=== PATIENT | female | born 1930 | race Caucasian/White ===

== ENCOUNTER 2019-08-03 10:23 | Inpatient (IN) | payer MEDICARE, BC ==
[~2019-08-03] VITALS: Ht 162.6 cm; Wt 38.1 kg
[2019-08-03] MEDS ORDERED: POTA10CA43 PO (10:46)
[2019-08-03] MEDS ORDERED: AMLO10TA7 PO (10:46)
[2019-08-03] MEDS ORDERED: DICL2SOL TP (10:46)
[2019-08-03] MEDS ORDERED: CRANBERRY PO (10:46)
[2019-08-03] MEDS ORDERED: MEMA10TA PO (10:46)
[2019-08-03] MEDS ORDERED: DONE5TAB34 PO (10:46)
[2019-08-03] MEDS ORDERED: [UNRECOGNIZED DRUG - OTHER] PO (10:46)
[2019-08-03] MEDS ORDERED: FEXO180T94 PO (10:46)
[2019-08-03] MEDS ORDERED: AMOX500C2 PO (10:46)
[2019-08-03] MEDS ORDERED: TRAM50TA2 PO (10:46)
[2019-08-03] MEDS ORDERED: SOLI10TA2 PO (10:46)
[2019-08-03] MEDS ORDERED: CLOP75TA15 PO (10:46)
[2019-08-03] MEDS ORDERED: ASPI81TA31 PO (10:46)
[2019-08-03] MEDS ORDERED: EPIN0.3P3 IJ (10:46)
[2019-08-03] MEDS ORDERED: CHOL200059 PO (10:46)
[2019-08-03] MEDS ORDERED: ATOR40TA PO (10:46)
[2019-08-03] MEDS ORDERED: FURO-151 PO (10:46)
[2019-08-03] MEDS ORDERED: ACET-2605 PO (10:46)
[2019-08-03 11:07] LABS: BASOPHILS # (AUTO) 0.1 K/uL (0.0-8.0); BASOPHILS % (AUTO) 0.8 % (0.0-2.0); EOSINOPHILS # (AUTO) 0.1 K/uL (0.0-0.7); EOSINOPHILS % (AUTO) 1.3 % (0.0-7.0); HEMATOCRIT 38.5 % (31.2-41.9); HEMOGLOBIN 12.9 g/dL (10.9-14.3); LYMPHOCYTES # (AUTO) 1.1 K/uL (20.0-40.0); LYMPHOCYTES % (AUTO) 14.7 % (20.5-51.5); MEAN CORPUSCULAR HEMOGLOBIN 30.3 uug (24.7-32.8); MEAN CORPUSCULAR HGB CONC 34 g/dL (32.3-35.6); MONOCYTES # (AUTO) 0.6 K/uL (2.0-10.0); MONOCYTES % (AUTO) 8.3 % (0.0-11.0); NEUTROPHILS # (AUTO) 5.8 K/uL (1.8-8.9); NEUTROPHILS % (AUTO) 74.9 % (38.5-71.5); PLATELET COUNT (AUTO) 229 K/uL (179-408); RED BLOOD CELL COUNT(AUTO) 4.28 MIL/uL (3.63-4.92); WHITE BLOOD COUNT (AUTO) 7.7 K/uL (3.8-11.8)
[2019-08-03 11:09] LABS: CARBON DIOXIDE 31 mmol/L (21-32); CHLORIDE 101 mmol/L (98-107); CREATININE 1.1 mg/dL (0.6-1.3); GLUCOSE 187 mg/dL (74-106); UREA NITROGEN, BLOOD 13 mg/dL (7-18)
[2019-08-03 11:14] LABS: ALANINE AMINOTRANSFERASE 15 U/L (14-59); ALKALINE PHOSPHATASE 74 U/L (50-136); ASPARTATE AMINOTRANSFERASE 13 U/L (15-37); BILIRUBIN,DIRECT 0.2 mg/dL (0.0-0.2); BILIRUBIN,TOTAL 0.9 mg/dL (0.2-1.0); TOTAL PROTEIN, SERUM 7.4 g/dL (6.4-8.2)
[2019-08-03] MEDS ORDERED: IV NORMAL SALINE 250 ML IV ONE (12:04)
[2019-08-03] MEDS ORDERED: IOHEXOL 350 100 ML INFUS..BTL ONE (12:04)
[2019-08-03] MEDS ORDERED: SWABABLE VALVE TRANSFER SET EA MC ONE (12:04)
[2019-08-03] MEDS ORDERED: POTASSIUM CHLORIDE 20 MEQ TAB.PRT.SR PO ONE (13:00)
[2019-08-03] MEDS ORDERED: POTASSIUM CHLORIDE 20 MEQ TAB.PRT.SR ONE (13:25)
--- NOTE | 2019-08-03 13:50 | NUR ---
nitza mariscal, at bedside.
[2019-08-03] MEDS ORDERED: ONDANSETRON 4 MG/2 ML VIAL IV PRN (14:15)
[2019-08-03] MEDS ORDERED: ACETAMINOPHEN 325 MG TABLET PO PRN (14:15)
[2019-08-03] MEDS ORDERED: MORPHINE SULFATE 2 MG/1 ML DISP.SYRIN IV PRN (14:15)
[2019-08-03] MEDS ORDERED: HYDROCODONE/APAP 5-325MG TABLET PO PRN (14:15)
[2019-08-03] MEDS ORDERED: TEMAZEPAM 15 MG CAPSULE PO PRN (14:15)
--- NOTE | 2019-08-03 14:20 | NUR ---
PT TRANSFERED TO FLOOR IN STABLE CONDITION
[2019-08-03 15:30] VITALS: BP 164/82
[2019-08-03] MEDS ORDERED: MEMANTINE HCL 10 MG TABLET PO SCH (17:00)
--- NOTE | 2019-08-03 17:00 | NUR ---
This is a 89 year old female patient of Doctor Matthieu with history of mechanical fall in the home secondary to syncopal episode. Patient is confused says lives alone and says she called out several times and caregivers came to help her. The patient was brought in by ambulance for further evaluation and workup. Willy Coughlin RN
[2019-08-03] MEDS: OXYBUTYNIN CHLORIDE 5 MG TABLET PO SCH (17:51)
[2019-08-03] MEDS: MEMANTINE HCL 5 MG TABLET PO SCH (17:51)
--- NOTE | 2019-08-03 19:20 | NUR ---
RECEIVED PT AWAKE, ALERT AND ORIENTEDX3. PT SHOWS NO SIGNS OF ACUTE DISTRESS. IV INTACT. SAFETY AND COMFORT PROVIDED. WILL CONTINUE TO MONITOR.
[2019-08-03 20:29] VITALS: BP 143/74
[2019-08-03] MEDS: ATORVASTATIN 40 MG TABLET PO SCH (20:52)
[2019-08-04 00:57] VITALS: BP 140/62
--- NOTE | 2019-08-04 02:19 | NUR ---
PT HAD MULTIFOCAL PVC AND SHORT RUNS OF VTACH AT 0152H. CHARGE NURSE AWARE. PT IN NO ACUTE DISTRESS. PT CURRENTLY AT SINUS RHYTHM WITH BUNDLE BRUNCH BLOCK. SAFETY AND COMFORT PROVIDED. WILL CONTINUE TO MONITOR.
[2019-08-04 04:00] VITALS: BP 132/74
--- NOTE | 2019-08-04 06:29 | NUR ---
PT SLEPT THROUGHOUT THE SHIFT. PT SHOWS NO SIGNS OF ACUTE DISTRESS. IV INTACT. PRESCRIBED MEDICATION GIVEN AND PT TOLERATED IT WELL. PT FORGETFUL. PT NEEDS REORIENTATION.SAFETY AND COMFORT PROVIDED. WILL ENDORSE TO INCOMING NURSE FOR CONTINUITY OF CARE.
[2019-08-04 06:39] LABS: BASOPHILS % (AUTO) 0.6 % (0.0-2.0); EOSINOPHILS # (AUTO) 0.2 K/uL (0.0-0.7); EOSINOPHILS % (AUTO) 3.4 % (0.0-7.0); HEMATOCRIT 36.1 % (31.2-41.9); HEMOGLOBIN 12.5 g/dL (10.9-14.3); LYMPHOCYTES # (AUTO) 1.4 K/uL (20.0-40.0); LYMPHOCYTES % (AUTO) 24.7 % (20.5-51.5); MEAN CORPUSCULAR HEMOGLOBIN 30.4 uug (24.7-32.8); MEAN CORPUSCULAR HGB CONC 35 g/dL (32.3-35.6); MEAN CORPUSCULAR VOLUME 87.6 fL (75.5-95.3); MONOCYTES # (AUTO) 0.7 K/uL (2.0-10.0); MONOCYTES % (AUTO) 12.2 % (0.0-11.0); NEUTROPHILS # (AUTO) 3.3 K/uL (1.8-8.9); NEUTROPHILS % (AUTO) 59.1 % (38.5-71.5); PLATELET COUNT (AUTO) 235 K/uL (179-408); RED BLOOD CELL COUNT(AUTO) 4.13 MIL/uL (3.63-4.92); WHITE BLOOD COUNT (AUTO) 5.5 K/uL (3.8-11.8)
[2019-08-04 06:53] LABS: CARBON DIOXIDE 32 mmol/L (21-32); CHLORIDE 104 mmol/L (98-107); CHOLESTEROL 179 mg/dL (<200); CREATININE 0.9 mg/dL (0.6-1.3); GLUCOSE 119 mg/dL (74-106); HDL CHOLESTEROL 80 mg/dL (40-60); PHOSPHOROUS 2.7 mg/dL (2.5-4.9); POTASSIUM 3.5 mmol/L (3.5-5.1); TRIGLYCERIDES 66 MG/DL (30-150); UREA NITROGEN, BLOOD 13 mg/dL (7-18)
[2019-08-04 06:55] LABS: THYROID STIMULATING HORMONE 1.749 mIU/mL (0.358-3.740)
--- NOTE | 2019-08-04 07:30 | NUR ---
Received patient awake in bed. AO x 2. Sinus rhythm with bundle branch block on tele. Patient stable with no respiratory distress. Respirations normal. Immediate needs attended. Safety and fall precautions in place. Call light within reach. Will continue to monitor patient throughout shift. Addendum: 08/05/19 at 0521 by NOÉ MORGAN RN Receiving note at 1930 not 0730.
--- NOTE | 2019-08-04 08:00 | NUR ---
RECEIVED PT AWAKE, ALERT TO HERSELF. PT SHOWS NO SIGNS OF ACUTE DISTRESS. IV INTACT. SAFETY AND COMFORT PROVIDED. WILL CONTINUE TO MONITOR.
[2019-08-04] MEDS: CHOLECALCIFEROL 1,000 UNIT TABLET PO SCH (08:37)
[2019-08-04] MEDS: MEMANTINE HCL 5 MG TABLET PO SCH ×2 (08:37→16:34)
[2019-08-04] MEDS: POTASSIUM CHLORIDE 10 MEQ TAB.PRT.SR PO SCH (08:37)
[2019-08-04] MEDS: CLOPIDOGREL 75 MG TABLET PO SCH (08:37)
[2019-08-04] MEDS: OXYBUTYNIN CHLORIDE 5 MG TABLET PO SCH ×2 (08:39→16:33)
[2019-08-04] MEDS: AMLODIPINE 10 MG TABLET PO SCH (08:39)
[2019-08-04] MEDS: FUROSEMIDE 40 MG TABLET PO SCH (08:39)
[2019-08-04] MEDS: ASPIRIN 81 MG TAB.CHEW PO SCH (08:40)
[2019-08-04] MEDS: DONEPEZIL 5 MG TABLET PO SCH (08:40)
[2019-08-04] MEDS ORDERED: SOLIFENACIN SUCCINATE 5 MG TABEC PO SCH (09:00)
[2019-08-04 11:59] VITALS: BP 121/59
[2019-08-04 16:00] VITALS: BP 137/65
--- NOTE | 2019-08-04 16:34 | NUR ---
PATIENT REFUSED TO TAKE HER MEDICATIONS, SHE STATED I DONT THEM. I EXPLAINED THE BENEFITS TO THE PATIENT BUT SHE STILL REFUSED.
--- NOTE | 2019-08-04 17:42 | NUR ---
I NEEDED TO CHANGE THE DRESSING ON THE IV SITE BUT PATIENT REFUSED, BECAME VERY IRRITATED AND TOLD ME TO LEAVE THE ROOM
--- NOTE | 2019-08-04 17:50 | NUR ---
Patient had afiv with aberrancy ( checked with Koshkaryan), BP were sbp 180" , rechecked in 10 min still 170's , called DECLAN Howard and he ordered Hydralazine 10 mg ivp q6h prn Addendum: 08/04/19 at 1808 by CASS GAN RN Patient had afiv with aberrancy ( checked with Koshkaryan), BP were sbp 180" , rechecked in 10 min still 170's , called DECLAN Howard and he ordered Hydralazine 10 mg ivp q6h prn. Patient is asymptomatic, denies chest pain , no SOB per observation, O2 97%
[2019-08-04 18:09] VITALS: BP 171/82
[2019-08-04] MEDS: hydrALAZINE HCL 20 MG/1 ML VIAL IV PRN (18:14)
--- NOTE | 2019-08-04 19:28 | NUR ---
RECEIVED PT AWAKE, ALERT TO HERSELF. PT SHOWS NO SIGNS OF ACUTE DISTRESS. IV INTACT. SAFETY AND COMFORT PROVIDED. WILL CONTINUE TO MONITOR.
[2019-08-04 20:00] VITALS: BP 129/73
[2019-08-04] MEDS: ATORVASTATIN 40 MG TABLET PO SCH ×2 (21:00→21:07)
[2019-08-05] VITALS (7 sets, daily range): BP systolic 100–149; BP diastolic 53–78
--- NOTE | 2019-08-05 05:21 | NUR ---
Patient slept throughout the night with no signs of distress. Sinus rhythm with bundle branch block on tele. Vitals within normal with slightly low bp in the 100s/40s. Needs attended. Safety and fall precautions in place. Will endorse care to oncoming shift.
[2019-08-05 06:26] LABS: BASOPHILS # (AUTO) 0.1 K/uL (0.0-8.0); BASOPHILS % (AUTO) 0.9 % (0.0-2.0); EOSINOPHILS # (AUTO) 0.2 K/uL (0.0-0.7); EOSINOPHILS % (AUTO) 3.3 % (0.0-7.0); HEMATOCRIT 34.2 % (31.2-41.9); LYMPHOCYTES # (AUTO) 1.5 K/uL (20.0-40.0); LYMPHOCYTES % (AUTO) 24.9 % (20.5-51.5); MEAN CORPUSCULAR HEMOGLOBIN 30.6 uug (24.7-32.8); MEAN CORPUSCULAR HGB CONC 35 g/dL (32.3-35.6); MEAN CORPUSCULAR VOLUME 87.5 fL (75.5-95.3); MONOCYTES # (AUTO) 0.7 K/uL (2.0-10.0); NEUTROPHILS # (AUTO) 3.6 K/uL (1.8-8.9); NEUTROPHILS % (AUTO) 59.9 % (38.5-71.5); PLATELET COUNT (AUTO) 223 K/uL (179-408); RED BLOOD CELL COUNT(AUTO) 3.91 MIL/uL (3.63-4.92); WHITE BLOOD COUNT (AUTO) 6.1 K/uL (3.8-11.8)
[2019-08-05 06:37] LABS: CARBON DIOXIDE 31 mmol/L (21-32); CHLORIDE 104 mmol/L (98-107); CREATININE 0.8 mg/dL (0.6-1.3); GLUCOSE 111 mg/dL (74-106); POTASSIUM 3.4 mmol/L (3.5-5.1); UREA NITROGEN, BLOOD 15 mg/dL (7-18)
[2019-08-05] MEDS ORDERED: POTASSIUM CHLORIDE 20 MEQ TAB.PRT.SR PO ONE (07:30)
--- NOTE | 2019-08-05 08:05 | NUR ---
RECEIVED PT AWAKE, ALERT TO HERSELF. PT SHOWS NO SIGNS OF ACUTE DISTRESS OR SOB. SAFETY AND COMFORT PROVIDED. SAFETY MEASURES IMPLEMENTED. TEL;E MONITORING SHOWS SINUS RHYTHM. PT IS MEDICATION COMPLIANT. CALL LIGHT WITHIN REACH. WILL CONTINUE TO MONITOR.
[2019-08-05] MEDS ORDERED: POTASSIUM CHLORIDE 20 MEQ POWDER PACKET PO ONE (08:30)
[2019-08-05] MEDS: MEMANTINE HCL 5 MG TABLET PO SCH ×2 (08:44→17:38)
[2019-08-05] MEDS: FUROSEMIDE 40 MG TABLET PO SCH (08:45)
[2019-08-05] MEDS: CHOLECALCIFEROL 1,000 UNIT TABLET PO SCH (08:45)
[2019-08-05] MEDS: DONEPEZIL 5 MG TABLET PO SCH (08:45)
[2019-08-05] MEDS: OXYBUTYNIN CHLORIDE 5 MG TABLET PO SCH ×2 (08:45→17:38)
[2019-08-05] MEDS: ASPIRIN 81 MG TAB.CHEW PO SCH (08:47)
[2019-08-05] MEDS: AMLODIPINE 10 MG TABLET PO SCH (08:47)
[2019-08-05] MEDS: POTASSIUM CHLORIDE 10 MEQ TAB.PRT.SR PO SCH (08:47)
[2019-08-05] MEDS: CLOPIDOGREL 75 MG TABLET PO SCH (08:47)
[2019-08-05] MEDS: METOPROLOL SUCCINATE XL 50 MG TAB.SR.24H PO SCH (12:14)
--- NOTE | 2019-08-05 12:15 | NUR ---
PT IS CURRENTLY RESTING COMFORTABLY IN BED. PT AWAKE AND PLEASANT. NO SIGNS OF ACUTE DISTRESS NOTED. NO SOB NOTED. BED LOCKED IN LOW POSITION. CALL LIGHT WITHIN REACH. TELE SHOWS SYNUS RHYTHM. PT IS MEDICATION COMPLIANT. WILL CONTINUE TO MONITOR.
[2019-08-05] MEDS: Z GUARD REMEDY PASTE 57 GM TUBE TOP SCH ×2 (16:06→21:19)
--- NOTE | 2019-08-05 18:05 | NUR ---
PT RESTING COMFORTABLY. NO SIGNS OF ACUTE DISTRESS OR SOB. PT IS MEDICATION COMPLIANT. AWAKE AND COOPERATIVE. IV SITE PATENT AND INTACT ON R F/A 20 GAUGE HEP LOCK. TELE MONITORING SHOWS SINUS RHYTHM WITH BUNDLE BRANCH BLOCK. 2 EPISODES OF AFIB REPORTED. DE. ERAZO AWARE. BED LOCKED IN LOW POSITION. CALL LIGHT WITHIN REACH. WILL GIVE SHIFT CHANGE REPORT ACCORDINGLY.
--- NOTE | 2019-08-05 19:30 | NUR ---
Received patient resting in bed watching television. AO x 2. Sinus rhythm with bundle branch block on monitor. No acute distress noted. No SOB noted. Safety precautions in place, bed alarm on. Bed locked, lowest position, semi fowlers, with 2 side rails up. Call light within reach. Will continue to monitor throughout shift.
[2019-08-05] MEDS: ATORVASTATIN 40 MG TABLET PO SCH ×2 (20:30→21:00)
[2019-08-06 00:48] VITALS: BP 133/72
[2019-08-06 04:46] VITALS: BP 170/83
--- NOTE | 2019-08-06 05:00 | NUR ---
received report by cage shift manager RN.
[2019-08-06] MEDS: hydrALAZINE HCL 20 MG/1 ML VIAL IV PRN (05:13)
[2019-08-06 06:29] LABS: BASOPHILS % (AUTO) 0.5 % (0.0-2.0); EOSINOPHILS # (AUTO) 0.3 K/uL (0.0-0.7); EOSINOPHILS % (AUTO) 3.4 % (0.0-7.0); HEMATOCRIT 39.2 % (31.2-41.9); HEMOGLOBIN 13.5 g/dL (10.9-14.3); LYMPHOCYTES # (AUTO) 2.1 K/uL (20.0-40.0); LYMPHOCYTES % (AUTO) 24.9 % (20.5-51.5); MEAN CORPUSCULAR HEMOGLOBIN 30.8 uug (24.7-32.8); MEAN CORPUSCULAR HGB CONC 35 g/dL (32.3-35.6); MEAN CORPUSCULAR VOLUME 89.2 fL (75.5-95.3); MONOCYTES # (AUTO) 0.8 K/uL (2.0-10.0); MONOCYTES % (AUTO) 9.1 % (0.0-11.0); NEUTROPHILS # (AUTO) 5.1 K/uL (1.8-8.9); NEUTROPHILS % (AUTO) 62.1 % (38.5-71.5); PLATELET COUNT (AUTO) 272 K/uL (179-408); WHITE BLOOD COUNT (AUTO) 8.3 K/uL (3.8-11.8)
--- NOTE | 2019-08-06 06:37 | NUR ---
patient given hydralazine for high BP. current BP is stable at 111/67
[2019-08-06 06:39] LABS: CARBON DIOXIDE 27 mmol/L (21-32); CHLORIDE 102 mmol/L (98-107); CREATININE 0.7 mg/dL (0.6-1.3); GLUCOSE 99 mg/dL (74-106); POTASSIUM 3.5 mmol/L (3.5-5.1); UREA NITROGEN, BLOOD 16 mg/dL (7-18)
--- NOTE | 2019-08-06 07:15 | NUR ---
Received patient in Bed, awake and verbally responsive. No signs of distress noted. No complain of pain or discomfort. Kept the call light within easy reach. Bed in lowest position. Will continue to monitor.
[2019-08-06] MEDS: DONEPEZIL 5 MG TABLET PO SCH (08:25)
[2019-08-06] MEDS: ASPIRIN 81 MG TAB.CHEW PO SCH (08:25)
[2019-08-06] MEDS: OXYBUTYNIN CHLORIDE 5 MG TABLET PO SCH ×2 (08:25→16:07)
[2019-08-06] MEDS: POTASSIUM CHLORIDE 10 MEQ TAB.PRT.SR PO SCH (08:26)
[2019-08-06] MEDS: FUROSEMIDE 40 MG TABLET PO SCH (08:26)
[2019-08-06] MEDS: METOPROLOL SUCCINATE XL 50 MG TAB.SR.24H PO SCH (08:26)
[2019-08-06] MEDS: CHOLECALCIFEROL 1,000 UNIT TABLET PO SCH (08:26)
[2019-08-06] MEDS: Z GUARD REMEDY PASTE 57 GM TUBE TOP SCH (08:26)
[2019-08-06] MEDS: CLOPIDOGREL 75 MG TABLET PO SCH (08:26)
[2019-08-06] MEDS: MEMANTINE HCL 5 MG TABLET PO SCH ×2 (08:26→16:07)
[2019-08-06] MEDS ORDERED: POTASSIUM CHLORIDE 20 MEQ POWDER PACKET PO ONE (09:30)
[2019-08-06] MEDS ORDERED: METO-357 PO (11:38)
[2019-08-06 11:41] VITALS: BP 113/54
--- NOTE | 2019-08-06 12:13 | NUR ---
WOUND CARE CONSULT: PT PRESENTS WITH CACHEXIA AND INCONTINENCE WITH VERY BONY SACRAL AREA, BLANCHABLE REDNESS, PRESENT ON ADMISSION. RECOMMENDATIONS MADE FOR SKIN PROTECTION. DISCUSSED WITH NURSING STAFF. WILL SEE PRN. IN AGREEMENT WITH PLAN OF CARE.
[2019-08-06 15:52] VITALS: BP 124/64
--- NOTE | 2019-08-06 18:25 | NUR ---
Patient is awake and verbally responsive. No signs of Distress noted. No SOB. No complain of pain or Discomfort. Patient with Discharge order to Acute Rehab Unit. Called ARU and gave report to Candice NAIK. Discharge Instructions given to patient. Removed IV site, manager medicare and wrist band. patient was transported to ARU via Wheelchair in stable condition.
== END 2019-08-06 18:20 | DRG 73 ==
LOC: ER 10:23 → TELE3 14:07
PROVIDERS: ADMIT Nurse Practitioner Acute Care; ATTEND Nurse Practitioner Acute Care
DX: G90.8 Other disorders of autonomic nervous system (principal); G93.41 Metabolic encephalopathy; E43 Unspecified severe protein-calorie malnutrition; M84.412A Pathological fracture, left shoulder, initial encounter for fracture; M84.48XA Pathological fracture, other site, initial encounter for fracture; I50.32 Chronic diastolic (congestive) heart failure; Z68.1 Body mass index [BMI] 19.9 or less, adult; I47.1 Supraventricular tachycardia; E78.5 Hyperlipidemia, unspecified; M62.84 Sarcopenia; M85.80 Other specified disorders of bone density and structure, unspecified site; R29.6 Repeated falls; N32.81 Overactive bladder; Z95.2 Presence of prosthetic heart valve; Z95.5 Presence of coronary angioplasty implant and graft; I25.10 Atherosclerotic heart disease of native coronary artery without angina pectoris; I48.0 Paroxysmal atrial fibrillation; I11.0 Hypertensive heart disease with heart failure; I70.0 Atherosclerosis of aorta; I44.7 Left bundle-branch block, unspecified; F03.90 Unspecified dementia, unspecified severity, without behavioral disturbance, psychotic disturbance, mood disturbance, and anxiety; Z92.3 Personal history of irradiation; Z85.43 Personal history of malignant neoplasm of ovary; Z79.899 Other long term (current) drug therapy; Z79.02 Long term (current) use of antithrombotics/antiplatelets; E83.52 Hypercalcemia; E04.1 Nontoxic single thyroid nodule; R91.8 Other nonspecific abnormal finding of lung field; I08.0 Rheumatic disorders of both mitral and aortic valves; W06.XXXA Fall from bed, initial encounter; R55 Syncope and collapse
CPT/HCPCS: 36415; 70030-TC; 71045; 71275; 72170; 73502; 83735; 84100; 84443; 85025; 93005; 93307; A4663; G0378; J0360; J7050; Q9967

== ENCOUNTER 2019-08-06 10:16 | Inpatient (IN) | payer MEDICARE, BC ==
[~2019-08-06] VITALS: Ht 162.6 cm; Wt 38.1 kg
[~2019-08-06 10:16] MED LIST: ACET-2605 PO; AMLO10TA7 PO; AMOX500C2 PO; ASPI81TA31 PO; ATOR40TA PO; CHOL200059 PO; CLOP75TA15 PO; CRANBERRY PO; DICL2SOL TP; DONE5TAB34 PO; EPIN0.3P3 IJ; FEXO180T94 PO; FURO-151 PO; MEMA10TA PO; POTA10CA43 PO; SOLI10TA2 PO; TRAM50TA2 PO; [UNRECOGNIZED DRUG - OTHER] PO
[2019-08-06] MEDS ORDERED: METO-357 PO (11:38)
[2019-08-06 19:37] VITALS: BP 144/68
[2019-08-06] MEDS ORDERED: ACETAMINOPHEN 325 MG TABLET PO PRN (21:30)
[2019-08-06] MEDS ORDERED: TRAMADOL HCL 50 MG TABLET PO PRN (21:30)
[2019-08-06] MEDS ORDERED: FEXOFENADINE HCL 180 MG TABLET PO PRN (21:30)
--- NOTE | 2019-08-07 04:24 | NUR ---
Admitted patient who has already arrived the unit. According to the day shift nurse, the patient arrived in the unit at 1845 from Med Surg. Received patient in the bed. AAO x1, only by name, very confused, asking unrelated questions. Not able to give reliable history. Not in acute distress or SOB. On room air. Admitting diagnosis: syncope, severe calcific stenosis, metabolic encephalopathy. Condition fair. VS: T: 97.7, HR:77, RR: 18, O2 sat: 97%, BP: 144/68. No complain of pain. Patient received in bed, AAO x4. Not in acute distress or SOB. Able to make needs known. On room air. VS checked, stable except HR:103. Physical assessment done. All admission work finished. MRSA swap taken and sent to the lab. Skin assessed and pictures taken and put in the chart. Belonging list done. All needs attended promptly. Fall prevention observed. Safety measures maintained. Bed in low and lock position, alarm on, side rails up x2 for safety. Patient educated to use call light. Call light and frequently used items within reach. Continue to monitor and will endorse to the day shift nurse accordingly.
[2019-08-07 05:47] VITALS: BP 154/58
[2019-08-07 05:50] VITALS: BP 140/69
[2019-08-07] MEDS: METOPROLOL SUCCINATE XL 50 MG TAB.SR.24H PO SCH (09:00)
[2019-08-07] MEDS: FUROSEMIDE 40 MG TABLET PO SCH (09:00)
[2019-08-07] MEDS: MEMANTINE HCL 5 MG TABLET PO SCH ×2 (09:00→17:59)
[2019-08-07] MEDS ORDERED: MEMANTINE HCL 10 MG TABLET PO SCH (09:00)
[2019-08-07] MEDS: DONEPEZIL 5 MG TABLET PO SCH (09:00)
[2019-08-07] MEDS: CLOPIDOGREL 75 MG TABLET PO SCH (09:00)
[2019-08-07] MEDS: ASPIRIN 81 MG TAB.CHEW PO SCH (09:00)
[2019-08-07] MEDS ORDERED: POTASSIUM CHLORIDE 10 MEQ TAB.PRT.SR PO SCH (09:00)
[2019-08-07] MEDS: POTASSIUM CHLORIDE 20 MEQ POWDER PACKET PO SCH (09:20)
[2019-08-07] MEDS: OXYBUTYNIN CHLORIDE 5 MG TABLET PO SCH ×3 (10:00→17:59)
--- NOTE | 2019-08-07 11:00 | NUR ---
WOUND CARE CONSULT: PT ADAMANTLY REFUSED SKIN ASSESSMENT AND ONLY ALLOWED ASSESSMENT OF RT SIDE OF CHEST WHICH HAS RAISED AREA, VERY BONY WITH SOME REDNESS, PRESENT ON ADMISSION. DEFER TO MD FOR CHEST RAISED AREA. RECOMMENDATIONS MADE FOR SKIN PROTECTION AND DISCUSSED WITH NURSING STAFF. PT IS COMBATIVE AT TIMES, SCREAMING AND CURSING AT STAFF. PT MOVES ABOUT IN BED. PT IS CACHECTIC. WILL SEE PRN. MD IN AGREEMENT WITH PLAN OF CARE.
--- NOTE | 2019-08-07 15:14 | NUR ---
Patient alert & oriented x 1 with episodes of forgetfulness and agitation noted while giving care. In No acute distress. Vital signs taken and stable. Patient noted with poor appetite informed MILITARY PERSONNEL SPECIALIST with an order for Megace. Patient also seen by wound nurse. Patient refused due medications offered and explained x 3 still refused. Monitored closely, assisted with feeding but pt. still with poor appetite. Skin kept clean and dry, safety needs attended, call light left at bed side and will continue with care.
[2019-08-07 15:45] VITALS: BP 137/64
--- NOTE | 2019-08-07 16:03 | NUR ---
INTERDISCIPLINARY TEAM CONFERENCE
[2019-08-07] MEDS: MEGESTROL ACETATE 20 MG TABLET PO SCH (17:59)
[2019-08-07] MEDS: CHOLECALCIFEROL 1,000 UNIT TABLET PO SCH (18:00)
[2019-08-07] MEDS ORDERED: CHOLECALCIFEROL 5000 UNIT PO SCH (18:00)
--- NOTE | 2019-08-07 19:39 | NUR ---
Vital signs stable, needs attended. Pt. still with poor appetite noted. Refused medications and meals. Monitored closely, endorsed to next shift and will continue with care.
[2019-08-07 20:13] VITALS: BP 134/63
[2019-08-07] MEDS: ATORVASTATIN 10 MG TABLET PO SCH (20:35)
--- NOTE | 2019-08-08 05:22 | NUR ---
awake alert and oriented x1-2 confused and disoriented. patient non compliant with meds. refused to take her meds. VSS. needs attended. fall precautions maintained. siderails up for safety. incontinent of bowel and bladder. No BM noted this shift. kept comfortable.
[2019-08-08 05:48] VITALS: BP 123/68
--- NOTE | 2019-08-08 07:21 | NUR ---
Nurse Notes: received report from the night nurse Megan Barnes RN, patient is resting in bed, in no respiratory distress, Has been refusing medications from the night nurse. Appears in no discomfort.
[2019-08-08 07:30] VITALS: BP 118/57
[2019-08-08 09:09] LABS: BASOPHILS % (AUTO) 0.5 % (0.0-2.0); EOSINOPHILS # (AUTO) 0.1 K/uL (0.0-0.7); EOSINOPHILS % (AUTO) 1.4 % (0.0-7.0); HEMATOCRIT 36.2 % (31.2-41.9); HEMOGLOBIN 12.5 g/dL (10.9-14.3); LYMPHOCYTES # (AUTO) 1.3 K/uL (20.0-40.0); LYMPHOCYTES % (AUTO) 18.9 % (20.5-51.5); MEAN CORPUSCULAR HEMOGLOBIN 31.9 uug (24.7-32.8); MEAN CORPUSCULAR HGB CONC 34 g/dL (32.3-35.6); MEAN CORPUSCULAR VOLUME 92.7 fL (75.5-95.3); MONOCYTES # (AUTO) 0.6 K/uL (2.0-10.0); MONOCYTES % (AUTO) 9.3 % (0.0-11.0); NEUTROPHILS # (AUTO) 4.7 K/uL (1.8-8.9); NEUTROPHILS % (AUTO) 69.9 % (38.5-71.5); PLATELET COUNT (AUTO) 233 K/uL (179-408); RED BLOOD CELL COUNT(AUTO) 3.91 MIL/uL (3.63-4.92); WHITE BLOOD COUNT (AUTO) 6.7 K/uL (3.8-11.8)
[2019-08-08 09:13] LABS: CARBON DIOXIDE 28 mmol/L (21-32); CHLORIDE 105 mmol/L (98-107); CREATININE 0.9 mg/dL (0.6-1.3); GLUCOSE 97 mg/dL (74-106); PHOSPHOROUS 2.6 mg/dL (2.5-4.9); POTASSIUM 3.5 mmol/L (3.5-5.1); UREA NITROGEN, BLOOD 17 mg/dL (7-18)
[2019-08-08] MEDS: ASPIRIN 81 MG TAB.CHEW PO SCH (10:11)
[2019-08-08] MEDS: FUROSEMIDE 40 MG TABLET PO SCH (10:11)
[2019-08-08] MEDS: METOPROLOL SUCCINATE XL 50 MG TAB.SR.24H PO SCH (10:11)
[2019-08-08] MEDS: OXYBUTYNIN CHLORIDE 5 MG TABLET PO SCH ×3 (10:13→18:56)
[2019-08-08] MEDS: MEMANTINE HCL 5 MG TABLET PO SCH ×2 (10:13→17:47)
[2019-08-08] MEDS: DONEPEZIL 5 MG TABLET PO SCH (10:13)
[2019-08-08] MEDS: MEGESTROL ACETATE 20 MG TABLET PO SCH ×2 (10:13→17:47)
[2019-08-08] MEDS: CLOPIDOGREL 75 MG TABLET PO SCH (10:16)
[2019-08-08] MEDS: POTASSIUM CHLORIDE 20 MEQ POWDER PACKET PO SCH (10:17)
[2019-08-08 16:00] VITALS: BP 146/65
[2019-08-08] MEDS: CHOLECALCIFEROL 1,000 UNIT TABLET PO SCH (18:56)
--- NOTE | 2019-08-08 19:25 | NUR ---
Nurse Notes: report given to the night nurse HEENA [place]. In no respiratory distress. Pain level 1/10.
--- NOTE | 2019-08-08 20:00 | NUR ---
Patient is in bed, oriented to self only. Appears mildly hostile to staff, refused vital sign checks, demanded to be left alone. Bed alarm is on, comfort and safety measures are in place.
[2019-08-08] MEDS: ATORVASTATIN 10 MG TABLET PO SCH (20:47)
--- NOTE | 2019-08-08 21:00 | NUR ---
patient is is more cooperative, took her Lipitor with apple sauce, maintains conversation, ate a cup of ice cream. watching TV, pleasant demeanor.
--- NOTE | 2019-08-08 22:00 | NUR ---
patient drank a full bottle of Ensure, initiates conversation, denies presence of pain, no distress noted.
[2019-08-09 04:48] VITALS: BP 149/67
[2019-08-09 08:00] VITALS: BP 143/60
[2019-08-09] MEDS: ASPIRIN 81 MG TAB.CHEW PO SCH (08:35)
[2019-08-09] MEDS: CLOPIDOGREL 75 MG TABLET PO SCH (08:35)
[2019-08-09] MEDS: FUROSEMIDE 40 MG TABLET PO SCH (08:36)
[2019-08-09] MEDS: MEGESTROL ACETATE 20 MG TABLET PO SCH ×2 (08:36→16:52)
[2019-08-09] MEDS: METOPROLOL SUCCINATE XL 50 MG TAB.SR.24H PO SCH (08:36)
[2019-08-09] MEDS: POTASSIUM CHLORIDE 20 MEQ POWDER PACKET PO SCH (08:37)
[2019-08-09] MEDS: MEMANTINE HCL 5 MG TABLET PO SCH ×2 (08:37→16:52)
[2019-08-09] MEDS: OXYBUTYNIN CHLORIDE 5 MG TABLET PO SCH ×3 (08:39→16:51)
[2019-08-09] MEDS: DONEPEZIL 5 MG TABLET PO SCH (08:40)
--- NOTE | 2019-08-09 15:40 | NUR ---
INDIVIDUALIZE OVERALL PLAN OF CARE
[2019-08-09] MEDS: CHOLECALCIFEROL 1,000 UNIT TABLET PO SCH (17:01)
--- NOTE | 2019-08-09 17:44 | NUR ---
patient still noted with poor po intake, encouraged and assisted with meals, no other changes noted, no acute distress noted
[2019-08-09 17:54] VITALS: BP 102/54
[2019-08-09] MEDS: ATORVASTATIN 10 MG TABLET PO SCH (21:00)
--- NOTE | 2019-08-09 21:13 | NUR ---
Patient refused Lipitor 10 mg tab. Explained risks and benefits. Offered 2 times. Still refused. Continue to monitor.
[2019-08-09 21:41] VITALS: BP 123/54
[2019-08-10 04:00] VITALS: BP 132/54
--- NOTE | 2019-08-10 06:47 | NUR ---
Patient refused to be changed, or to be checked this morning, stated, "Don't touch me". Explained to her that I want to check your bladder and your diaper and be sure of urination. Still refused and told, "Time to go, good bye, right now". Patient is not compliant with medication and care. will endorse to the day shift nurse.
[2019-08-10] MEDS: OXYBUTYNIN CHLORIDE 5 MG TABLET PO SCH ×3 (08:59→17:11)
[2019-08-10] MEDS: DONEPEZIL 5 MG TABLET PO SCH (08:59)
[2019-08-10] MEDS: POTASSIUM CHLORIDE 20 MEQ POWDER PACKET PO SCH (08:59)
[2019-08-10] MEDS: ASPIRIN 81 MG TAB.CHEW PO SCH (08:59)
[2019-08-10] MEDS: MEMANTINE HCL 5 MG TABLET PO SCH ×2 (09:00→17:11)
[2019-08-10] MEDS: FUROSEMIDE 40 MG TABLET PO SCH (09:00)
[2019-08-10] MEDS: MEGESTROL ACETATE 20 MG TABLET PO SCH ×2 (09:00→17:11)
[2019-08-10] MEDS: CLOPIDOGREL 75 MG TABLET PO SCH (09:00)
[2019-08-10] MEDS: METOPROLOL SUCCINATE XL 50 MG TAB.SR.24H PO SCH (09:00)
[2019-08-10 09:04] VITALS: BP 126/54
--- NOTE | 2019-08-10 09:46 | NUR ---
patient still refusing to be changed, refused her meds,refused breakfast, offered x3, Sanjiv VENEER SLICING MACHINE OPERATOR aware, continue to monitor and offer care, no sob, resp even nonlabored, no acute distress noted
--- NOTE | 2019-08-10 17:37 | NUR ---
PATIENT IS IN BED, PERICARE PROVIDED, PATIENT ONLY TOOK SOME OF THE MEDS POOR PO INTAKE, CONTINUE TO MONITOR, NO DISTRESS NOTED
[2019-08-10 17:41] VITALS: BP 131/60
[2019-08-10] MEDS: CHOLECALCIFEROL 1,000 UNIT TABLET PO SCH (18:00)
[2019-08-10 19:55] VITALS: BP 129/62
[2019-08-10] MEDS: ATORVASTATIN 10 MG TABLET PO SCH (20:54)
[2019-08-11 04:53] VITALS: BP 156/72
--- NOTE | 2019-08-11 06:55 | NUR ---
Pt. was stable and slept all night. All needs met and anticipated. On room air. No complain of pain. Physical assessment done. Fall prevention observed. Safety measures maintained. Bed in low and lock position, alarm on, side rails up x2 for safety. Call light and frequently used items within reach. Will endorse to oncoming nurse.
[2019-08-11 07:47] VITALS: BP 155/73
[2019-08-11] MEDS: CLOPIDOGREL 75 MG TABLET PO SCH (09:32)
[2019-08-11] MEDS: METOPROLOL SUCCINATE XL 50 MG TAB.SR.24H PO SCH (09:32)
[2019-08-11] MEDS: FUROSEMIDE 40 MG TABLET PO SCH (09:32)
[2019-08-11] MEDS: POTASSIUM CHLORIDE 20 MEQ POWDER PACKET PO SCH (09:32)
[2019-08-11] MEDS: ASPIRIN 81 MG TAB.CHEW PO SCH (09:33)
[2019-08-11] MEDS: DONEPEZIL 5 MG TABLET PO SCH (09:34)
[2019-08-11] MEDS: OXYBUTYNIN CHLORIDE 5 MG TABLET PO SCH ×3 (09:34→17:37)
[2019-08-11] MEDS: MEMANTINE HCL 5 MG TABLET PO SCH ×2 (09:34→17:37)
[2019-08-11] MEDS: MEGESTROL ACETATE 20 MG TABLET PO SCH ×2 (09:35→17:38)
[2019-08-11 15:17] VITALS: BP 134/62
[2019-08-11] MEDS: CHOLECALCIFEROL 1,000 UNIT TABLET PO SCH (17:37)
--- NOTE | 2019-08-11 18:53 | NUR ---
Pt received this morning, assessed, AOx1. Pt denies discomfort and no acute distress noted. Pt compliant with medications crushed in vanilla pudding Spoke with Pt's son, regarding plan of care and update on progress. Bed in locked and lowest position with side rails up x2 and bed alarm on. All comfort and safety needs promptly attended to throughout the shift. Call light within reach. Private caregiver and friend Fransisca, visited, provided more extensive Pt Hx, placed in chart for reference. Call light placed within reach. Will continue to monitor and endorse to oncoming night filler.
--- NOTE | 2019-08-11 19:25 | NUR ---
Patient received in bed, AAO x1, very confused. Not in acute distress or SOB. Able to make needs known. On room air. No complain of pain. Physical assessment done. Fall prevention observed. Safety measures maintained. Bed in low and lock position, alarm on, side rails up x2 for safety. Call light and frequently used items within reach. Will continue to monitor.
[2019-08-11 20:24] VITALS: BP 111/48
[2019-08-11] MEDS: ATORVASTATIN 10 MG TABLET PO SCH (20:37)
[2019-08-12 04:41] VITALS: BP 127/57
[2019-08-12 07:48] VITALS: BP 131/59
[2019-08-12] MEDS: FUROSEMIDE 40 MG TABLET PO SCH (09:15)
[2019-08-12] MEDS: MEGESTROL ACETATE 20 MG TABLET PO SCH ×2 (09:15→17:04)
[2019-08-12] MEDS: OXYBUTYNIN CHLORIDE 5 MG TABLET PO SCH ×3 (09:15→17:04)
[2019-08-12] MEDS: CLOPIDOGREL 75 MG TABLET PO SCH (09:15)
[2019-08-12] MEDS: METOPROLOL SUCCINATE XL 50 MG TAB.SR.24H PO SCH (09:15)
[2019-08-12] MEDS: DONEPEZIL 5 MG TABLET PO SCH (09:15)
[2019-08-12] MEDS: MEMANTINE HCL 5 MG TABLET PO SCH ×2 (09:16→17:05)
[2019-08-12] MEDS: ASPIRIN 81 MG TAB.CHEW PO SCH (09:16)
[2019-08-12] MEDS: POTASSIUM CHLORIDE 20 MEQ POWDER PACKET PO SCH (09:16)
[2019-08-12 15:33] VITALS: BP 121/40
[2019-08-12] MEDS: CHOLECALCIFEROL 1,000 UNIT TABLET PO SCH (17:24)
--- NOTE | 2019-08-12 18:35 | NUR ---
PATIENT IS STABLE, NO ACUTE DISTRESS NOTED, GOOD PERICARE PROVIDED, STILL NOTED WITH POOR APPETITE, HOWEVER SEEMS IMPROVING, CURRENTLY ON MEGACE, ADMINISTERED ORDERED, TOLERATED MEALS AND MEDS, CONTINUE TO MONITOR, ALL NEEDS ATTENDED TIMELY, WILL ENDORSE ACCORDINGLY
[2019-08-12 19:58] VITALS: BP 126/54
[2019-08-12] MEDS: ATORVASTATIN 10 MG TABLET PO SCH (21:35)
--- NOTE | 2019-08-13 00:53 | NUR ---
awake alert and oriented x2-3 Confused and disoriented. VSS. Patient non compliant with meds. Meds given with pudding. Able to take it. Fall precautions maintained. Siderails up for safety. Needs attended. Kept comfortable.
[2019-08-13 04:55] VITALS: BP 130/66
[2019-08-13 08:05] VITALS: BP 119/51
[2019-08-13] MEDS: DONEPEZIL 5 MG TABLET PO SCH (08:52)
[2019-08-13] MEDS: FUROSEMIDE 40 MG TABLET PO SCH (08:52)
[2019-08-13] MEDS: MEGESTROL ACETATE 20 MG TABLET PO SCH ×2 (08:52→16:45)
[2019-08-13] MEDS: POTASSIUM CHLORIDE 20 MEQ POWDER PACKET PO SCH (08:52)
[2019-08-13] MEDS: CLOPIDOGREL 75 MG TABLET PO SCH (08:52)
[2019-08-13] MEDS: ASPIRIN 81 MG TAB.CHEW PO SCH (08:52)
[2019-08-13] MEDS: MEMANTINE HCL 5 MG TABLET PO SCH ×2 (08:53→16:46)
[2019-08-13] MEDS: OXYBUTYNIN CHLORIDE 5 MG TABLET PO SCH ×3 (08:53→16:45)
[2019-08-13] MEDS: METOPROLOL SUCCINATE XL 50 MG TAB.SR.24H PO SCH (08:53)
[2019-08-13] MEDS: Z GUARD REMEDY PASTE 57 GM TUBE TOP PRN (08:54)
--- NOTE | 2019-08-13 09:30 | NUR ---
Received patient awake and alert and oriented x 1 in bed. No s/s acute distress notes. On RA with SpO2 of 98%, no SOB. Incontinent of B&B. Kept clean and dry at all times. Safety and comfort provided at all times. Call light within reached and will continue to monitor. All due medications administered as ordered and tolerated well with no ASE. No s/sx of bleeding, currently on ASA/Plavix PO. Continue plan of care. Will continue to monitor.
[2019-08-13 16:06] VITALS: BP 102/41
[2019-08-13] MEDS: CHOLECALCIFEROL 1,000 UNIT TABLET PO SCH (17:08)
--- NOTE | 2019-08-13 18:17 | NUR ---
No significant change during this shift. Remain compliant with nursing care. Skin care rendered, no new skin condition. Safety measures and fall precaution in place. Will endorse to oncoming shift accordingly.
[2019-08-13 19:45] VITALS: BP 149/53
[2019-08-13] MEDS: ATORVASTATIN 10 MG TABLET PO SCH (20:37)
[2019-08-14 04:35] VITALS: BP 145/66
--- NOTE | 2019-08-14 04:44 | NUR ---
awake alert and oriented x1-2 Confused and disoriented. Bedtime care given. Incontinent of bowel and bladder. Kept clean and dry. Needs attended. VSS. Fall precautions maintained. Siderails up for safety. Meds given via pudding. Non compliant with meds and care. Will monitor patient.
[2019-08-14 07:51] VITALS: BP 129/50
[2019-08-14] MEDS: POTASSIUM CHLORIDE 20 MEQ POWDER PACKET PO SCH (10:19)
[2019-08-14] MEDS: FUROSEMIDE 40 MG TABLET PO SCH (10:19)
[2019-08-14] MEDS: CLOPIDOGREL 75 MG TABLET PO SCH (10:20)
[2019-08-14] MEDS: MEMANTINE HCL 5 MG TABLET PO SCH ×2 (10:20→18:13)
[2019-08-14] MEDS: ASPIRIN 81 MG TAB.CHEW PO SCH (10:20)
[2019-08-14] MEDS: METOPROLOL SUCCINATE XL 50 MG TAB.SR.24H PO SCH (10:20)
[2019-08-14] MEDS: MEGESTROL ACETATE 20 MG TABLET PO SCH ×2 (10:21→18:13)
[2019-08-14] MEDS: OXYBUTYNIN CHLORIDE 5 MG TABLET PO SCH ×3 (10:21→18:14)
[2019-08-14] MEDS: DONEPEZIL 5 MG TABLET PO SCH (10:22)
--- NOTE | 2019-08-14 15:39 | NUR ---
INTERDISCIPLINARY TEAM CONFERENCE
[2019-08-14 16:02] VITALS: BP 121/56
[2019-08-14] MEDS: CHOLECALCIFEROL 1,000 UNIT TABLET PO SCH (18:15)
--- NOTE | 2019-08-14 19:30 | NUR ---
PATIENT SITTING ON THE W/C AND WATCHING TV. NO C/O OF PAIN OR ANY DISCOMFORT NOTED. WILL CONTINUE TO MONITOR
[2019-08-14 20:37] VITALS: BP 136/62
[2019-08-14] MEDS: ATORVASTATIN 10 MG TABLET PO SCH (20:43)
[2019-08-15 05:38] VITALS: BP 157/68
--- NOTE | 2019-08-15 06:27 | NUR ---
Patient sleeping intermittently, arousable to verbal response . No c/o pain or any discomfort . kept clean and dry .
[2019-08-15 07:30] VITALS: BP 134/67
[2019-08-15] MEDS: FUROSEMIDE 40 MG TABLET PO SCH (09:17)
[2019-08-15] MEDS: CLOPIDOGREL 75 MG TABLET PO SCH (09:17)
[2019-08-15] MEDS: POTASSIUM CHLORIDE 20 MEQ POWDER PACKET PO SCH (09:17)
[2019-08-15] MEDS: OXYBUTYNIN CHLORIDE 5 MG TABLET PO SCH ×3 (09:18→17:34)
[2019-08-15] MEDS: DONEPEZIL 5 MG TABLET PO SCH (09:18)
[2019-08-15] MEDS: ASPIRIN 81 MG TAB.CHEW PO SCH (09:18)
[2019-08-15] MEDS: METOPROLOL SUCCINATE XL 50 MG TAB.SR.24H PO SCH (09:18)
[2019-08-15] MEDS: MEGESTROL ACETATE 20 MG TABLET PO SCH ×2 (09:19→17:33)
[2019-08-15] MEDS: MEMANTINE HCL 5 MG TABLET PO SCH ×2 (09:19→17:33)
[2019-08-15 16:00] VITALS: BP 149/71
[2019-08-15] MEDS: CHOLECALCIFEROL 1,000 UNIT TABLET PO SCH (17:36)
--- NOTE | 2019-08-15 17:36 | NUR ---
DIFFICULT TO GET HER TO TAKE HER MEDS. SHE WONT TAKE THE PILLS WHOLE AND IF I CRUSH AND PUT IN APPLE SAUCE OR PUDDING SHE ONLY WANT A SMALL BITE TAKES MUCH ENCOURAGEMENT AND SOMETIMES SHE STILL REFUSES
[2019-08-15 20:09] VITALS: BP 159/71
[2019-08-15] MEDS: ATORVASTATIN 10 MG TABLET PO SCH (21:00)
--- NOTE | 2019-08-15 21:05 | NUR ---
Patient refused Lipitor 10 mg tab. Explained risks and benefits. Offered 2 times. Still refused. Decided to put med in pudding or apple sauce, but she refused to have pudding or apple sauce. Continue to monitor.
[2019-08-16 05:17] VITALS: BP 135/63
[2019-08-16 08:00] VITALS: BP 143/56
[2019-08-16] MEDS: POTASSIUM CHLORIDE 20 MEQ POWDER PACKET PO SCH (09:03)
[2019-08-16] MEDS: CLOPIDOGREL 75 MG TABLET PO SCH (09:03)
[2019-08-16] MEDS: FUROSEMIDE 40 MG TABLET PO SCH (09:03)
[2019-08-16] MEDS: ASPIRIN 81 MG TAB.CHEW PO SCH (09:03)
[2019-08-16] MEDS: METOPROLOL SUCCINATE XL 50 MG TAB.SR.24H PO SCH (09:04)
[2019-08-16] MEDS: DONEPEZIL 5 MG TABLET PO SCH (09:04)
[2019-08-16] MEDS: MEGESTROL ACETATE 20 MG TABLET PO SCH ×2 (09:04→17:13)
[2019-08-16] MEDS: Z GUARD REMEDY PASTE 57 GM TUBE TOP PRN (09:04)
[2019-08-16] MEDS: OXYBUTYNIN CHLORIDE 5 MG TABLET PO SCH ×3 (09:05→17:13)
[2019-08-16] MEDS: MEMANTINE HCL 5 MG TABLET PO SCH ×2 (09:05→17:13)
[2019-08-16 16:00] VITALS: BP 116/48
[2019-08-16] MEDS: CHOLECALCIFEROL 1,000 UNIT TABLET PO SCH (17:13)
--- NOTE | 2019-08-16 19:38 | NUR ---
receivedm attempting to get out of bed and assited by the STRIP POLISHER to be on the wheelchair. will monitor. dental assistant medical assistant at bedside
--- NOTE | 2019-08-16 19:39 | NUR ---
NO CHANGES NOTED DURING THE SHIFT, NO DISTRESS NOTED, ALL MEDS ADMINISTERED.SKIN IS INTACT
[2019-08-16 20:48] VITALS: BP 131/59
[2019-08-16] MEDS: ATORVASTATIN 10 MG TABLET PO SCH (22:14)
[2019-08-17 04:22] VITALS: BP 126/68
[2019-08-17 08:00] VITALS: BP 124/58
[2019-08-17] MEDS: ASPIRIN 81 MG TAB.CHEW PO SCH (09:35)
[2019-08-17] MEDS: OXYBUTYNIN CHLORIDE 5 MG TABLET PO SCH ×3 (09:35→17:25)
[2019-08-17] MEDS: FUROSEMIDE 40 MG TABLET PO SCH (09:35)
[2019-08-17] MEDS: MEGESTROL ACETATE 20 MG TABLET PO SCH ×2 (09:35→17:25)
[2019-08-17] MEDS: CLOPIDOGREL 75 MG TABLET PO SCH (09:35)
[2019-08-17] MEDS: MEMANTINE HCL 5 MG TABLET PO SCH ×2 (09:36→17:25)
[2019-08-17] MEDS: POTASSIUM CHLORIDE 20 MEQ POWDER PACKET PO SCH (09:36)
[2019-08-17] MEDS: METOPROLOL SUCCINATE XL 50 MG TAB.SR.24H PO SCH (09:36)
[2019-08-17] MEDS: DONEPEZIL 5 MG TABLET PO SCH (09:36)
--- NOTE | 2019-08-17 10:00 | NUR ---
Received patient awake and alert and oriented x 1 in bed. No s/s acute distress notes. On RA with SpO2 of 97%, no SOB. Incontinent of B&B. Kept clean and dry at all times. Safety and comfort provided at all times. Call light within reached and will continue to monitor. All due medications administered as ordered and tolerated well with no ASE. Continue plan of care. Will continue to monitor.
[2019-08-17] MEDS: CHOLECALCIFEROL 1,000 UNIT TABLET PO SCH (17:25)
[2019-08-17 17:28] VITALS: BP 104/44
[2019-08-17] MEDS: ATORVASTATIN 10 MG TABLET PO SCH (21:06)
[2019-08-17 21:09] VITALS: BP 93/41
[2019-08-18 05:28] VITALS: BP 132/89
[2019-08-18 07:45] VITALS: BP 130/56
[2019-08-18] MEDS: POTASSIUM CHLORIDE 20 MEQ POWDER PACKET PO SCH (08:44)
[2019-08-18] MEDS: FUROSEMIDE 40 MG TABLET PO SCH (08:44)
[2019-08-18] MEDS: MEGESTROL ACETATE 20 MG TABLET PO SCH ×2 (08:44→17:21)
[2019-08-18] MEDS: ASPIRIN 81 MG TAB.CHEW PO SCH (08:44)
[2019-08-18] MEDS: METOPROLOL SUCCINATE XL 50 MG TAB.SR.24H PO SCH (08:45)
[2019-08-18] MEDS: CLOPIDOGREL 75 MG TABLET PO SCH (08:45)
[2019-08-18] MEDS: OXYBUTYNIN CHLORIDE 5 MG TABLET PO SCH ×3 (08:45→17:21)
[2019-08-18] MEDS: MEMANTINE HCL 5 MG TABLET PO SCH ×2 (08:45→17:21)
[2019-08-18] MEDS: DONEPEZIL 5 MG TABLET PO SCH (08:45)
[2019-08-18 15:42] VITALS: BP 106/40
[2019-08-18] MEDS: CHOLECALCIFEROL 1,000 UNIT TABLET PO SCH (17:21)
--- NOTE | 2019-08-18 18:36 | NUR ---
Patient continue assisting with ADL with good effect. not in distress. no complaint voiced noted. will continue monitor
--- NOTE | 2019-08-18 19:40 | NUR ---
Patient received in bed, AAO x1, very confused. Not in acute distress or SOB. Able to make needs known. On room air. No complain of pain. Physical assessment done. Fall prevention observed. Safety measures maintained. Bed in low and lock position, alarm on, side rails up x2 for safety. Call light and frequently used items within reach. Continue to monitor.
[2019-08-18] MEDS: ATORVASTATIN 10 MG TABLET PO SCH (20:05)
[2019-08-18 20:52] VITALS: BP 134/44
[2019-08-19 04:45] VITALS: BP 118/54
[2019-08-19 07:23] LABS: CARBON DIOXIDE 34 mmol/L (21-32); CHLORIDE 106 mmol/L (98-107); CREATININE 0.9 mg/dL (0.6-1.3); GLUCOSE 116 mg/dL (74-106); POTASSIUM 3.7 mmol/L (3.5-5.1); UREA NITROGEN, BLOOD 39 mg/dL (7-18)
[2019-08-19 07:30] LABS: BASOPHILS % (AUTO) 0.5 % (0.0-2.0); EOSINOPHILS # (AUTO) 0.2 K/uL (0.0-0.7); EOSINOPHILS % (AUTO) 3.8 % (0.0-7.0); HEMATOCRIT 33.5 % (31.2-41.9); HEMOGLOBIN 11.4 g/dL (10.9-14.3); LYMPHOCYTES # (AUTO) 1.2 K/uL (20.0-40.0); LYMPHOCYTES % (AUTO) 22.7 % (20.5-51.5); MEAN CORPUSCULAR HEMOGLOBIN 31.5 uug (24.7-32.8); MEAN CORPUSCULAR HGB CONC 34 g/dL (32.3-35.6); MEAN CORPUSCULAR VOLUME 92.8 fL (75.5-95.3); MONOCYTES # (AUTO) 0.5 K/uL (2.0-10.0); MONOCYTES % (AUTO) 10.6 % (0.0-11.0); NEUTROPHILS # (AUTO) 3.2 K/uL (1.8-8.9); NEUTROPHILS % (AUTO) 62.4 % (38.5-71.5); PLATELET COUNT (AUTO) 229 K/uL (179-408); RED BLOOD CELL COUNT(AUTO) 3.62 MIL/uL (3.63-4.92); WHITE BLOOD COUNT (AUTO) 5.2 K/uL (3.8-11.8)
[2019-08-19] MEDS: ASPIRIN 81 MG TAB.CHEW PO SCH (08:09)
[2019-08-19] MEDS: MEGESTROL ACETATE 20 MG TABLET PO SCH ×2 (08:09→17:13)
[2019-08-19] MEDS: CLOPIDOGREL 75 MG TABLET PO SCH (08:09)
[2019-08-19] MEDS: METOPROLOL SUCCINATE XL 50 MG TAB.SR.24H PO SCH (08:09)
[2019-08-19] MEDS: OXYBUTYNIN CHLORIDE 5 MG TABLET PO SCH ×3 (08:09→17:13)
[2019-08-19] MEDS: DONEPEZIL 5 MG TABLET PO SCH (08:09)
[2019-08-19] MEDS: FUROSEMIDE 40 MG TABLET PO SCH (08:09)
[2019-08-19] MEDS: POTASSIUM CHLORIDE 20 MEQ POWDER PACKET PO SCH (08:10)
[2019-08-19] MEDS: MEMANTINE HCL 5 MG TABLET PO SCH ×2 (08:10→17:13)
[2019-08-19 08:30] VITALS: BP 148/64
[2019-08-19] MEDS: Z GUARD REMEDY PASTE 57 GM TUBE TOP PRN (09:08)
--- NOTE | 2019-08-19 09:48 | NUR ---
Received patient with eyes closed in bed. No s/s acute distress notes. Oriented to self only with baseline confusion. On RA with SpO2 of 98%, no SOB. Incontinent of B&B. Skin care rendered, z-guard applied to sacrococcyx area and covered with mepilex boarder. Kept clean and dry at all times. Safety and comfort provided at all times. Call light within reached and will continue to monitor. All due medications administered as ordered and tolerated well with no ASE. Continue plan of care. Will continue to monitor.
[2019-08-19 16:24] VITALS: BP 120/59
[2019-08-19] MEDS: CHOLECALCIFEROL 1,000 UNIT TABLET PO SCH (17:14)
--- NOTE | 2019-08-19 19:40 | NUR ---
Awake, sitting on the chair inside room. Denies any pain/discomforts at this time. Safety measures and fall precaution maintained. Continue current plan of care.
[2019-08-19 20:19] VITALS: BP 132/71
[2019-08-19] MEDS: ATORVASTATIN 10 MG TABLET PO SCH (20:30)
[2019-08-20 05:55] VITALS: BP 140/65
--- NOTE | 2019-08-20 06:37 | NUR ---
Shift End Report: Slept well. VS stable. No complaint presented all night. All needs attended nad met. Continue current rehab plan of care.
[2019-08-20 08:00] VITALS: BP 138/64
--- NOTE | 2019-08-20 08:02 | NUR ---
Received patient in bed, sleeping easily arousable, in NO acute distress. Introduced self, Vital signs taken and stable. NO complains of pain and will continue with care.
[2019-08-20] MEDS: POTASSIUM CHLORIDE 20 MEQ POWDER PACKET PO SCH (08:36)
[2019-08-20] MEDS: ASPIRIN 81 MG TAB.CHEW PO SCH (08:36)
[2019-08-20] MEDS: CLOPIDOGREL 75 MG TABLET PO SCH (08:37)
[2019-08-20] MEDS: MEGESTROL ACETATE 20 MG TABLET PO SCH ×2 (08:37→17:06)
[2019-08-20] MEDS: OXYBUTYNIN CHLORIDE 5 MG TABLET PO SCH ×3 (08:37→17:07)
[2019-08-20] MEDS: FUROSEMIDE 40 MG TABLET PO SCH (08:37)
[2019-08-20] MEDS: DONEPEZIL 5 MG TABLET PO SCH (08:38)
[2019-08-20] MEDS: MEMANTINE HCL 5 MG TABLET PO SCH ×2 (08:39→17:06)
[2019-08-20] MEDS: METOPROLOL SUCCINATE XL 50 MG TAB.SR.24H PO SCH (08:41)
[2019-08-20 15:49] VITALS: BP 110/53
[2019-08-20] MEDS: CHOLECALCIFEROL 1,000 UNIT TABLET PO SCH (17:06)
--- NOTE | 2019-08-20 18:35 | NUR ---
Patient assisted during shift, needs met. No new change of condition noted. Assisted during feeding. VS stable, safety measures in place, call light left at bed side and will continue with care.
[2019-08-20 20:09] VITALS: BP 130/57
[2019-08-20] MEDS: ATORVASTATIN 10 MG TABLET PO SCH (21:37)
[2019-08-21 04:00] VITALS: BP 116/58
[2019-08-21 07:48] VITALS: BP 154/66
[2019-08-21] MEDS: OXYBUTYNIN CHLORIDE 5 MG TABLET PO SCH ×2 (08:25→12:36)
[2019-08-21] MEDS: MEGESTROL ACETATE 20 MG TABLET PO SCH (08:25)
[2019-08-21 08:26] VITALS: BP 154/66
[2019-08-21] MEDS: CLOPIDOGREL 75 MG TABLET PO SCH (08:26)
[2019-08-21] MEDS: DONEPEZIL 5 MG TABLET PO SCH (08:26)
[2019-08-21] MEDS: METOPROLOL SUCCINATE XL 50 MG TAB.SR.24H PO SCH (08:26)
[2019-08-21] MEDS: ASPIRIN 81 MG TAB.CHEW PO SCH (08:26)
[2019-08-21] MEDS: MEMANTINE HCL 5 MG TABLET PO SCH (08:26)
[2019-08-21] MEDS: POTASSIUM CHLORIDE 20 MEQ POWDER PACKET PO SCH (08:26)
[2019-08-21] MEDS: FUROSEMIDE 40 MG TABLET PO SCH (08:26)
--- NOTE | 2019-08-21 16:02 | NUR ---
Discharge note: Patient is A&O x 1-2 with episodes of confusion and forgetfulness noted. No acute distress. NO SOB noted. Vital signs taken and stable for patient. Due medications administered as ordered and scheduled. Patient being discharged to Assisted living with Home health care. Called Son x 2 in regards to Flu/PNA vaccine, no answer and no call back. Paper works prepared and signed by 2 nurses. Medication list, X-ray, and lab papers sent with patient. Safety measures met, needs attended and patient left via gurney assisted by 2 MEAT SCRUBBER and left at 2:20pm.
== END 2019-08-21 14:20 | disposition home health service (06) | DRG 73 ==
PROVIDERS: ADMIT Internal Medicine; ATTEND Physical Medicine & Rehabilitation Pain Medicine
DX: G90.8 Other disorders of autonomic nervous system (principal); E43 Unspecified severe protein-calorie malnutrition; G93.41 Metabolic encephalopathy; D68.59 Other primary thrombophilia; Z68.1 Body mass index [BMI] 19.9 or less, adult; E87.1 Hypo-osmolality and hyponatremia; R64 Cachexia; I50.32 Chronic diastolic (congestive) heart failure; M62.84 Sarcopenia; R55 Syncope and collapse; E03.9 Hypothyroidism, unspecified; D64.9 Anemia, unspecified; E78.5 Hyperlipidemia, unspecified; F03.90 Unspecified dementia, unspecified severity, without behavioral disturbance, psychotic disturbance, mood disturbance, and anxiety; I25.10 Atherosclerotic heart disease of native coronary artery without angina pectoris; I48.91 Unspecified atrial fibrillation; I71.4 Abdominal aortic aneurysm, without rupture; I73.9 Peripheral vascular disease, unspecified; Z96.642 Presence of left artificial hip joint; J44.9 Chronic obstructive pulmonary disease, unspecified; N32.81 Overactive bladder; Z85.43 Personal history of malignant neoplasm of ovary; Z95.5 Presence of coronary angioplasty implant and graft; Z85.3 Personal history of malignant neoplasm of breast; R53.81 Other malaise; I11.0 Hypertensive heart disease with heart failure; Z87.311 Personal history of (healed) other pathological fracture
CPT/HCPCS: 36415; 83735; 84100; 85025; A4663

== ENCOUNTER 2019-12-23 17:22 | Inpatient (IN) | payer MEDICARE, BC ==
[~2019-12-23] VITALS: Ht 157.5 cm; Wt 45.0 kg
--- NOTE | 2019-12-23 17:30 | NUR ---
PT IS IN ROOM #2A. DR WHITE EVALUATED THE PT.
[2019-12-23 17:55] LABS: BASOPHILS # (AUTO) 0.1 K/uL (0.0-8.0); BASOPHILS % (AUTO) 0.9 % (0.0-2.0); HEMATOCRIT 36.9 % (31.2-41.9); HEMOGLOBIN 12.7 g/dL (10.9-14.3); LYMPHOCYTES # (AUTO) 0.9 K/uL (20.0-40.0); LYMPHOCYTES % (AUTO) 9.2 % (20.5-51.5); MEAN CORPUSCULAR HEMOGLOBIN 30.9 uug (24.7-32.8); MEAN CORPUSCULAR HGB CONC 34 g/dL (32.3-35.6); MEAN CORPUSCULAR VOLUME 89.8 fL (75.5-95.3); MONOCYTES # (AUTO) 0.8 K/uL (2.0-10.0); MONOCYTES % (AUTO) 9.1 % (0.0-11.0); NEUTROPHILS # (AUTO) 7.5 K/uL (1.8-8.9); NEUTROPHILS % (AUTO) 80.8 % (38.5-71.5); PLATELET COUNT (AUTO) 222 K/uL (179-408); RED BLOOD CELL COUNT(AUTO) 4.11 MIL/uL (3.63-4.92); WHITE BLOOD COUNT (AUTO) 9.2 K/uL (3.8-11.8)
[2019-12-23 18:00] LABS: CREATININE 0.9 mg/dL (0.6-1.3); POTASSIUM 2.9 mmol/L (3.5-5.1)
[2019-12-23] MEDS ORDERED: CEFTRIAXONE 1 G in IV DEXTROSE 5% 50 ML IV ONE (18:00)
[2019-12-23] MEDS ORDERED: AZITHROMYCIN IV 500 MG in IV DEXTROSE 5% 250 ML IV ONE (18:00)
[2019-12-23] MEDS ORDERED: MAGNESIUM HYDROXIDE 30 ML LIQUID UDC PO PRN (18:15)
[2019-12-23] MEDS ORDERED: ONDANSETRON 4 MG/2 ML VIAL IV PRN (18:15)
[2019-12-23] MEDS ORDERED: ACETAMINOPHEN 325 MG TABLET PO PRN (18:15)
[2019-12-23] MEDS ORDERED: POTASSIUM CHLORIDE 20 MEQ TAB.PRT.SR PO ONE (18:15)
[2019-12-23] MEDS ORDERED: CEFTRIAXONE /D5W 50ML IVPB **ER PYXIS IV ONE (18:24)
[2019-12-23] MEDS ORDERED: AZITHROMYCIN 500MG/ D5W 250ML IVPB **ER PYXIS ONLY IV ONE (18:24)
--- NOTE | 2019-12-23 18:53 | NUR ---
REPORT GIVEN TO CONTINUING EDUCATION SPECIALIST RN.
[2019-12-23] MEDS ORDERED: POTASSIUM CHLORIDE 20 MEQ TAB.PRT.SR ONE (19:02)
--- NOTE | 2019-12-23 19:08 | NUR ---
Assumed care of pt at this time. Pt is pending admission after change of shift. Pt. admitted to Telemetry, under care of Aga Anderson. Diagnosis: Pneumonia. Belongs List completed. MRSA swab done.
--- NOTE | 2019-12-23 20:00 | NUR ---
Admitted 89y/o Female under Justin SOFTWARE SUPPORT REPRESENTATIVE. Dx: PNA. Patient is A&Ox1, noted forgetful. On O2 at 2lpm via NC. Patient noted w/ productive cough. IV access on LFA 20g intact and patent w/ saline flush. Oriented patient to her room and w/ the use of call light. Admission protocol followed. Body assessment done. Safety measures observed. Call light in reach
[2019-12-23] MEDS ORDERED: GUAIFENESIN LA 600 MG TABLET.SA PO ONE (21:00)
[2019-12-23 21:01] VITALS: BP 115/79
[2019-12-23 21:04] VITALS: BP 152/74
[2019-12-23] MEDS: IV NS 1000 ML 1,000 ML IV PRN (21:11)
[2019-12-23] MEDS ORDERED: CETIRIZINE HCL 10 MG TABLET PO PRN (22:00)
[2019-12-24 04:47] LABS: *BILIRUBIN,URIN NEGATIVE (NEGATIVE); *BLOOD, URINE 2+ (NEGATIVE); *CLARITY,URINE CLOUDY (CLEAR); *COLOR,URINE YELLOW (YELLOW); *KETONES,URINE TRACE (NEGATIVE); *UROBILINOGEN,URINE 0.2 E.U./dl (NORMAL); LEUKOCYTE ESTERASE ,URINE 3+ (NEGATIVE); NITRITE, URINE POSITIVE (NEGATIVE); PH,URINE 5.5 (5.0-8.0); UGLUCOSE NEGATIVE (NEGATIVE)
[2019-12-24 05:26] LABS: BACTERIA,URINE MANY /HPF (NONE SEEN); SQUAMOUS EPITHELIAL CELL,UR FEW /HPF (NONE SEEN); WBC,URINE TNTC /HPF (0-3)
--- NOTE | 2019-12-24 06:44 | NUR ---
Patient slept well. No SOB noted. No complaints of pain at this time. All needs attended. Will endorse accordingly
[2019-12-24 06:51] VITALS: BP 126/71
[2019-12-24 06:57] LABS: BASOPHILS % (AUTO) 0.2 % (0.0-2.0); HEMATOCRIT 37.1 % (31.2-41.9); HEMOGLOBIN 12.8 g/dL (10.9-14.3); LYMPHOCYTES # (AUTO) 0.7 K/uL (20.0-40.0); LYMPHOCYTES % (AUTO) 6.3 % (20.5-51.5); MEAN CORPUSCULAR HEMOGLOBIN 30.9 uug (24.7-32.8); MEAN CORPUSCULAR HGB CONC 35 g/dL (32.3-35.6); MEAN CORPUSCULAR VOLUME 89.8 fL (75.5-95.3); MONOCYTES # (AUTO) 0.9 K/uL (2.0-10.0); MONOCYTES % (AUTO) 8.1 % (0.0-11.0); NEUTROPHILS # (AUTO) 9.3 K/uL (1.8-8.9); NEUTROPHILS % (AUTO) 85.4 % (38.5-71.5); PLATELET COUNT (AUTO) 237 K/uL (179-408); RED BLOOD CELL COUNT(AUTO) 4.14 MIL/uL (3.63-4.92); WHITE BLOOD COUNT (AUTO) 10.9 K/uL (3.8-11.8)
[2019-12-24 07:16] LABS: CREATININE 0.7 mg/dL (0.6-1.3); PHOSPHOROUS 1.7 mg/dL (2.5-4.9)
--- NOTE | 2019-12-24 08:00 | NUR ---
Received pt. resting in bed alert oriented to self. Pt. denies pain/ discomfot. pt. denies SOB/ difficulty breathing. IV in L forearm 20 gauge intact patent running prescribed fluid. Pt. clear on auscultation bilaterally. Pt. has NC 2 LPM. Safety measures in place. call light within reach,. will continue to monitor pt.
[2019-12-24] MEDS: MEMANTINE HCL 5 MG TABLET PO SCH ×2 (08:46→16:58)
[2019-12-24] MEDS: OXYBUTYNIN CHLORIDE 5 MG TABLET PO SCH ×2 (08:46→16:58)
[2019-12-24] MEDS: CHOLECALCIFEROL 1,000 UNIT TABLET PO SCH (08:46)
[2019-12-24] MEDS: CLOPIDOGREL 75 MG TABLET PO SCH (08:47)
[2019-12-24] MEDS ORDERED: DONEPEZIL 5 MG TABLET PO SCH (09:00)
[2019-12-24] MEDS ORDERED: AMLODIPINE 10 MG TABLET PO SCH (09:00)
[2019-12-24] MEDS ORDERED: FUROSEMIDE 40 MG TABLET PO SCH (09:00)
[2019-12-24] MEDS ORDERED: POTASSIUM CHLORIDE 10 MEQ TAB.PRT.SR PO SCH (09:00)
[2019-12-24] MEDS: POTASSIUM PHOSPHATE MM 7.5 MMOL in IV DEXTROSE 5% 100 ML IV SCH ×2 (09:31→13:56)
[2019-12-24 11:12] VITALS: BP 143/68
--- NOTE | 2019-12-24 14:23 | NUR ---
Telephone order by Dr. Laith Cristobal to put in for ensure. Pt. has poor PO intake. Will encourage pt. to eat more and assist during meal time.
[2019-12-24 15:10] VITALS: BP 144/74
[2019-12-24] MEDS: CEFTRIAXONE 1 G in IV DEXTROSE 5% 50 ML IV SCH (17:02)
[2019-12-24] MEDS: ENSURE ENLIVE (VAN) 240 ML LIQUID PO SCH (17:18)
[2019-12-24] MEDS ORDERED: AZITHROMYCIN IV 500 MG in IV DEXTROSE 5% 250 ML IV SCH (18:30)
--- NOTE | 2019-12-24 20:00 | NUR ---
RECEIVED PATIENT ASLEEP IN BED. EASILY AROUSABLE. ALERT TO NAME ONLY, CONFUSED. IVF INFUSING WELL TO LEFT FA. VS WNL. ON O2 2L NC SATING WELL. BED ALARM ON. CALL LIGHT IN REACH. ALL NEEDS ATTENDED. WILL CONTINUE TO MONITOR AND ASSESS.
[2019-12-24 20:22] VITALS: BP 140/71
[2019-12-25] VITALS (26 sets, daily range): BP systolic 88–166; BP diastolic 55–95
[2019-12-25] MEDS: IV NS 1000 ML 1,000 ML IV PRN (01:41)
--- NOTE | 2019-12-25 05:15 | NUR ---
PATENT AWAKE IN BED. BIOMECHANICAL ENGINEER AT BEDSIDE TO TAKE AM VITALS, INFORMING THAT PATIENTS HR IS 144. CHECKED PULSE MANUALLY AND RECEIVED HIGH RATE. PATIENT PLACED ON TELE, HEART MONITOR READING 130'S, INCREASING UP TO 155, NON-SUSTAINED. VSS, BP 115/55. PATIENT IS AFEBRILE, 98.7. ON O2 2L NC SATING 95%. PATIENT DENIES ANY CHEST PAIN. NUTRITION SPECIALIST NOTIFIED. CALL OUT TO DR. BARGER FOR FURTHER ORDERS.
--- NOTE | 2019-12-25 05:45 | NUR ---
WAITING FOR CALL BACK FROM . 2ND CALL OUT TO DR. BARGER. WAITING FOR RESPONSE. WATER FILTRATION TECHNICIAN AND CYBER FORENSICS ANALYST AT NURSE STATION.
--- NOTE | 2019-12-25 05:50 | NUR ---
RECEIVED CALLED BACK. INFORMED MD OF VITALS, HEART RATE AND TELE READING. MD STATED TO CONTINUE TO MONITOR, OTHERWISE, NO NEW ORDERS RECEIVED. RT AT BEDSIDE TO PERFORM EKG. ALL NEEDS ATTENDED.
--- NOTE | 2019-12-25 05:58 | NUR ---
EKG DONE SHOWING UNCONTROLLED, A-FIB WITH RAPID VENTRICULAR RESPONSE WITH BBB, HEART RATE 130-150, NON SUSTAINED. WILL CONTINUE TO MONITOR AND ASSESS.
[2019-12-25 06:55] LABS: BILIRUBIN,TOTAL 1.3 mg/dL (0.2-1.0); CREATININE 0.7 mg/dL (0.6-1.3); MAGNESIUM 2.2 mg/dL (1.8-2.4); PHOSPHOROUS 2.3 mg/dL (2.5-4.9); POTASSIUM 2.9 mmol/L (3.5-5.1); TOTAL PROTEIN, SERUM 6.5 g/dL (6.4-8.2)
[2019-12-25 06:58] LABS: BASOPHILS % (AUTO) 0.1 % (0.0-2.0); HEMATOCRIT 33.9 % (31.2-41.9); HEMOGLOBIN 11.8 g/dL (10.9-14.3); LYMPHOCYTES # (AUTO) 1.2 K/uL (20.0-40.0); LYMPHOCYTES % (AUTO) 11.7 % (20.5-51.5); MEAN CORPUSCULAR HEMOGLOBIN 31.3 uug (24.7-32.8); MEAN CORPUSCULAR HGB CONC 35 g/dL (32.3-35.6); MEAN CORPUSCULAR VOLUME 90.4 fL (75.5-95.3); MONOCYTES # (AUTO) 0.8 K/uL (2.0-10.0); MONOCYTES % (AUTO) 7.9 % (0.0-11.0); NEUTROPHILS # (AUTO) 8.1 K/uL (1.8-8.9); NEUTROPHILS % (AUTO) 80.3 % (38.5-71.5); PLATELET COUNT (AUTO) 252 K/uL (179-408); RED BLOOD CELL COUNT(AUTO) 3.75 MIL/uL (3.63-4.92); WHITE BLOOD COUNT (AUTO) 10.1 K/uL (3.8-11.8)
--- NOTE | 2019-12-25 07:44 | NUR ---
received pt. resting in bed alert oriented to self. pt. denies chest pain/ discomfort. pt. not diaphoretic. pt. denies SOB/ difficulty breathing. HR has been in the 144s to [address] Ozuna pt. wants to transfer pt. to CCU to start on amiodarone drrayna
--- NOTE | 2019-12-25 07:50 | NUR ---
Pt. BP 136/71 HR 148 oxygen on 2 L 100% temp. 97.8 RR 18. Pt. transferred to CCU. gave report to COMPACT ASSEMBLERHEENA quinones. Called Clive Crystal person to contact on face sheet phone number [phone] with no answer at 8:10 AM.
--- NOTE | 2019-12-25 08:00 | NUR ---
Got pt.to room #2 CCU from TELE Tx.,on monitor uncontr.A-fib.low BP. was paged.
[2019-12-25] MEDS ORDERED: PHENYLEPHRINE IV 20 MG in IV DEXTROSE 5% 250 ML IV PRN (08:30)
[2019-12-25] MEDS ORDERED: IV NORMAL SALINE 500 ML IV ONE (08:30)
[2019-12-25] MEDS ORDERED: POTASSIUM CHLORIDE 20 MEQ POWDER PACKET PO ONE (08:30)
[2019-12-25] MEDS: ENSURE ENLIVE (VAN) 240 ML LIQUID PO SCH ×2 (08:39→17:30)
[2019-12-25] MEDS: POTASSIUM CHLORIDE 50 ML IV SCH ×4 (08:40→11:49)
[2019-12-25] MEDS: CLOPIDOGREL 75 MG TABLET PO SCH (08:57)
[2019-12-25] MEDS ORDERED: DONEPEZIL 5 MG TABLET PO SCH (09:00)
--- NOTE | 2019-12-25 09:20 | NUR ---
Pt.was seen by with new orders.
[2019-12-25] MEDS: MEMANTINE HCL 5 MG TABLET PO SCH ×2 (09:21→17:29)
[2019-12-25] MEDS: OXYBUTYNIN CHLORIDE 5 MG TABLET PO SCH ×2 (09:21→17:28)
[2019-12-25] MEDS: CHOLECALCIFEROL 1,000 UNIT TABLET PO SCH (09:21)
[2019-12-25] MEDS ORDERED: AMIODARONE HCL IV 900 MG in IV DEXTROSE 5% 482 ML IV PRN (09:30)
[2019-12-25] MEDS ORDERED: AMIODARONE HCL IV 150 MG in IV DEXTROSE 5% 100 ML IV ONE (09:30)
[2019-12-25] MEDS: POTASSIUM PHOSPHATE MM 5 MMOL in IV DEXTROSE 5% 100 ML IV SCH ×2 (13:15→15:31)
[2019-12-25] MEDS: CEFTRIAXONE 1 G in IV DEXTROSE 5% 50 ML IV SCH (17:30)
[2019-12-25] MEDS ORDERED: AZITHROMYCIN IV 500 MG in IV DEXTROSE 5% 250 ML IV SCH (18:00)
--- NOTE | 2019-12-25 19:15 | NUR ---
received patient awake , able to follow simple command , congested , oxygen 2l nc, amiodarone 0.5 mg running and ns at 60 ml , [place] intact , iv left and right hand intact
--- NOTE | 2019-12-25 19:48 | NUR ---
PHARMACY CLINICAL NOTES ( VANCOMYCIN DOSING) S: 89 YO female was admitted due to altered mental status, Likely left lower lung aspiration PNA. Since admission was treated with Rocephine and Zithromax empirically but she spiked a fever today and had leuckocytosis and ID changed abx to Rocephine, doxycycline and Vancomycin O: BUN/SCR 21/0.7, WBC 10.1, TEMP 101, DOSING WT 36 KG A/P: Will dose Vancomycin as 500 mg q32h, estimated peak is 36 and trough of 16.4. Plan to order trough prior to 4th dose (not ordered). Will continue monitoring renal fxn and levels and adjust the dose if it is necessary.
[2019-12-25] MEDS ORDERED: VANCOMYCIN IV 500 MG in IV DEXTROSE 5% 100 ML IV SCH (20:00)
[2019-12-25] MEDS ORDERED: FUROSEMIDE 20 MG/2 ML VIAL IV ONE (20:30)
[2019-12-25] MEDS ORDERED: DILTIAZEM HCL IV 125 MG in IV NORMAL SALINE 100 ML IV PRN (20:30)
--- NOTE | 2019-12-25 20:45 | NUR ---
dr montana is here to see patient , notifid of sustaining high blood pressure , received order for david christensen
[2019-12-25] MEDS: DOXYCYCLINE HYCLATE IV 100 MG in IV DEXTROSE 5% 100 ML IV SCH (21:34)
--- NOTE | 2019-12-25 23:51 | NUR ---
* Helps perform self care activities * Maintains maximum range of motion * Regains muscle mass and strength * Maintains vital signs WNL during activity Addendum: 12/25/19 at 2351 by MANDY PRIDE RN Amended: Links added. Addendum: 12/25/19 at 2357 by MANDY PRIDE RN Amended: Links yeyo.
--- NOTE | 2019-12-25 23:51 | NUR ---
* Maintains baseline ABG's * Evidences usual mental status Addendum: 12/25/19 at 2351 by MANDY PRIDE RN Amended: Melvin added. Addendum: 12/25/19 at 2357 by MANDY PRIDE RN Amended: Melvin orona.
--- NOTE | 2019-12-25 23:51 | NUR ---
* Understands anatomy and physiology * Describes reportable s/s * Understands treatment plan * Understands medication regime Addendum: 12/25/19 at 2427 by MANDY PRIDE RN Amended: Links added.
--- NOTE | 2019-12-25 23:57 | NUR ---
Helps perform self care activities * Maintains maximum range of motion * Regains muscle mass and strength * Maintains vital signs WNL during activity Addendum: 12/25/19 at 2357 by MANDY PRIDE RN Amended: Links added.
--- NOTE | 2019-12-25 23:57 | NUR ---
* Maintains vital signs WNL Addendum: 12/25/19 at 2357 by MANDY PRIDE RN Amended: Links added.
[2019-12-26] VITALS (43 sets, daily range): BP systolic 114–155; BP diastolic 56–110
[2019-12-26] MEDS: IV NS 1000 ML 1,000 ML IV PRN (04:32)
--- NOTE | 2019-12-26 06:00 | NUR ---
awake , able to follow command , incontinent of urine , cleansed and bath given , no distress ,sr , hr is 70
[2019-12-26 06:04] LABS: BASOPHILS # (AUTO) 0.1 K/uL (0.0-8.0); BASOPHILS % (AUTO) 0.6 % (0.0-2.0); HEMOGLOBIN 10.7 g/dL (10.9-14.3); LYMPHOCYTES % (AUTO) 8.7 % (20.5-51.5); MEAN CORPUSCULAR HEMOGLOBIN 31.2 uug (24.7-32.8); MEAN CORPUSCULAR HGB CONC 35 g/dL (32.3-35.6); MEAN CORPUSCULAR VOLUME 90.3 fL (75.5-95.3); MONOCYTES # (AUTO) 0.8 K/uL (2.0-10.0); MONOCYTES % (AUTO) 7.3 % (0.0-11.0); NEUTROPHILS # (AUTO) 9.6 K/uL (1.8-8.9); NEUTROPHILS % (AUTO) 83.4 % (38.5-71.5); PLATELET COUNT (AUTO) 258 K/uL (179-408); RED BLOOD CELL COUNT(AUTO) 3.43 MIL/uL (3.63-4.92); WHITE BLOOD COUNT (AUTO) 11.5 K/uL (3.8-11.8)
[2019-12-26 06:25] LABS: CREATININE 0.7 mg/dL (0.6-1.3); MAGNESIUM 1.9 mg/dL (1.8-2.4); PHOSPHOROUS 2.4 mg/dL (2.5-4.9); POTASSIUM 4.4 mmol/L (3.5-5.1)
--- NOTE | 2019-12-26 06:27 | NUR ---
dr garvey was called to get an order for picc line , waiting for call back , eladio Duffy was clled to get consent for picc line , waiting for call back
--- NOTE | 2019-12-26 06:30 | NUR ---
iv tried and started unsuccessful x 3
--- NOTE | 2019-12-26 06:33 | NUR ---
dr garvey called back received order ok for picc line insertion
[2019-12-26] MEDS: DOXYCYCLINE HYCLATE IV 100 MG in IV DEXTROSE 5% 100 ML IV SCH ×2 (08:29→20:29)
[2019-12-26] MEDS: OXYBUTYNIN CHLORIDE 5 MG TABLET PO SCH ×2 (08:29→17:13)
[2019-12-26] MEDS: CHOLECALCIFEROL 1,000 UNIT TABLET PO SCH (08:29)
[2019-12-26] MEDS: MEMANTINE HCL 5 MG TABLET PO SCH ×2 (08:29→17:13)
[2019-12-26] MEDS: ENSURE ENLIVE (VAN) 240 ML LIQUID PO SCH ×2 (08:30→17:13)
[2019-12-26] MEDS: CLOPIDOGREL 75 MG TABLET PO SCH (08:30)
--- NOTE | 2019-12-26 09:11 | NUR ---
PHARMACY CLINICAL NOTES ( VANCOMYCIN DOSING) S: To continue vanco dosing on this 89 YO female for likely left lower lung aspiration PNA (spiked a fever on 12/25 while on Rocephin & zithromax) O: BUN/SCR 20/0.7, WBC 11.5, TEMP 97.8, wt 36 KG ht 157 cm A/P: Due to advanced age, will change dose of Vancomycin to 500 mg IVPB q37h, estimated trough of 16 mcg/ml. 2nd dose on 12/26 at 1000. Plan to order trough prior to 4th dose (not ordered). Will continue monitoring renal fxn and levels and adjust the dose if it is necessary.
--- NOTE | 2019-12-26 11:09 | NUR ---
Nutrition consult received for malnutrition Pt has been seen and assessed by previous RD. Oral supplement has been added as pt agreed to. Will continue f/u closely with nutrition s/s. Addendum: 12/26/19 at [address] Amended: Links added.
--- NOTE | 2019-12-26 11:13 | NUR ---
INFECTIOUS DISEASE SERVICES KRYSTA PULLER OVER IN THE UNIT, FULL REPORT GIVEN SEE ORDER HISTORY FOR NEW ORDERS. DECLAN CHAPARRO AT BEDSIDE ASSESSING PATIENT.
--- NOTE | 2019-12-26 11:45 | NUR ---
CARDIOLOGY SERVICES DR. ERAZO IN THE UNIT, FULL REPORT GIVEN TO DR. ERAZO SEE ORDER HISTORY FOR NEW ORDERS. DR ERAZO AT BEDSIDE ASSESSING PATIENT.
[2019-12-26] MEDS ORDERED: SODIUM PHOSPHATE MM 5 MM in IV DEXTROSE 5% 100 ML IV ONE (12:15)
[2019-12-26] MEDS: AMIODARONE HCL 200 MG TABLET PO SCH ×2 (12:32→20:29)
[2019-12-26] MEDS: CEFTRIAXONE 1 G in IV DEXTROSE 5% 50 ML IV SCH (17:27)
--- NOTE | 2019-12-26 19:15 | NUR ---
patient is awake , drinking ensure on her own, follows simple command , no distress , iv ns @ 60 , running , [place] intact
--- NOTE | 2019-12-26 20:16 | NUR ---
* Maintains baseline ABG's * Evidences usual mental status Addendum: 12/26/19 at 2018 by MANDY PRIDE RN Amended: Links added.
--- NOTE | 2019-12-26 20:16 | NUR ---
* Helps perform self care activities * Maintains maximum range of motion * Regains muscle mass and strength * Maintains vital signs WNL during activity Addendum: 12/26/19 at 2018 by MANDY PRIDE RN Amended: Links added.
--- NOTE | 2019-12-26 20:17 | NUR ---
Bed mobility: CGA Transfers: CGA Gait: CGA with FWW x 100 feet Addendum: 12/26/19 at 2018 by MANDY PRIDE RN Amended: Links added.
--- NOTE | 2019-12-26 20:18 | NUR ---
Maintains vital signs WNL * Maintains optimal lab values Addendum: 12/26/19 at 2018 by MANDY PRIDE RN Amended: Links added.
--- NOTE | 2019-12-26 20:18 | NUR ---
Understands anatomy and physiology * Describes reportable s/s * Understands treatment plan * Understands medication regime Addendum: 12/26/19 at 2018 by MANDY PRIDE RN Amended: Links added.
[2019-12-27] VITALS (13 sets, daily range): BP systolic 109–167; BP diastolic 50–108
[2019-12-27] MEDS: IV NS 1000 ML 1,000 ML IV PRN (01:58)
--- NOTE | 2019-12-27 04:30 | NUR ---
moses the son , was called to get consent for picc line waiting for call back , and supervisor rework is called to notify of possible picc line insertion for today
--- NOTE | 2019-12-27 05:30 | NUR ---
SHERYL THE SON CALLED BACK AND GAVE CONSENT FOR PICC LINE
[2019-12-27] MEDS: CLOPIDOGREL 75 MG TABLET PO SCH (08:44)
[2019-12-27] MEDS: OXYBUTYNIN CHLORIDE 5 MG TABLET PO SCH ×2 (08:44→16:56)
[2019-12-27] MEDS: AMIODARONE HCL 200 MG TABLET PO SCH ×2 (08:44→21:31)
[2019-12-27] MEDS: CHOLECALCIFEROL 1,000 UNIT TABLET PO SCH (08:45)
[2019-12-27] MEDS: ENSURE ENLIVE (VAN) 240 ML LIQUID PO SCH ×2 (08:48→17:36)
[2019-12-27] MEDS: MEMANTINE HCL 5 MG TABLET PO SCH ×2 (09:15→16:56)
[2019-12-27] MEDS: DOXYCYCLINE HYCLATE IV 100 MG in IV DEXTROSE 5% 100 ML IV SCH ×2 (09:33→22:01)
--- NOTE | 2019-12-27 09:50 | NUR ---
A call to cardiology services, Dr. Francisco Cruz to report sustained SBP in and about 160's. About 25-40 minutes later a call back from and prn orders for SBP&DBP above 160's received. Addendum: 12/27/19 at 1113 by CHARLIE LYNN RN and DBP above 100.
[2019-12-27] MEDS ORDERED: VANCOMYCIN IV 500 MG in IV DEXTROSE 5% 100 ML IV SCH (10:00)
--- NOTE | 2019-12-27 10:16 | NUR ---
PHARMACY CLINICAL NOTES ( VANCOMYCIN DOSING) S: To continue vanco dosing on this 89 YO female for likely left lower lung aspiration PNA (spiked a fever on 12/25 while on Rocephin & zithromax) O: BUN/SCR 20/0.7 (), WBC 11.5 (), TEMP 98.3, wt 36 KG ht 157 cm A/P: Due to advanced age, will change dose of Vancomycin to 500 mg IVPB q37h, estimated trough of 16 mcg/ml. 2nd dose today at 1000. Plan to order trough prior to 4th dose (not ordered). Will continue monitoring renal fxn and levels and adjust the dose if it is necessary.
[2019-12-27] MEDS ORDERED: hydrALAZINE HCL 20 MG/1 ML VIAL IV PRN (10:30)
--- NOTE | 2019-12-27 11:30 | NUR ---
ORDER RECEIVED TO TRANSFER PATIENT TO TELEMETRY FLOOR. REPORT GIVEN TO ANGELIC NAIK. PATIENT PLACED ON WIRELESS OPERATOR, PLACED ON OXYGEN. NO COMPLICATIONS DURING TRANSFER, VITAL SIGNS STABLE, NO SIGNS OF RESPIRATORY DISTRESS.
--- NOTE | 2019-12-27 11:50 | NUR ---
RECEIVED PATIENT FROM CCU, PATIENT ADMITTED TO TELEMETRY UNIT AND PATIENT NO COMPLICATION NOTED, PATIENT AWAKE AND ALERT. COOPERATIVE ON OXYGEN VIA NASAL CANNULA , WITH IV SALINE LOCK. SAFETY AND COMFORT PROVIDED. WILL CONTINUE TO MONITOR.
[2019-12-27] MEDS: DILTIAZEM HCL CD 120 MG CAP.SR.24H PO SCH (12:30)
[2019-12-27] MEDS: FUROSEMIDE 20 MG/2 ML VIAL IV SCH ×2 (12:30→21:31)
[2019-12-27] MEDS ORDERED: DILTIAZEM HCL 60 MG TABLET PO SCH (14:00)
[2019-12-27] MEDS ORDERED: DILTIAZEM HCL 25 MG IV IV ONE ×2 (14:00→14:15)
[2019-12-27] MEDS ORDERED: DILTIAZEM HCL 60 MG TABLET PO ONE (14:15)
[2019-12-27 14:29] LABS: BASOPHILS % (AUTO) 0.2 % (0.0-2.0); EOSINOPHILS # (AUTO) 0.1 K/uL (0.0-0.7); EOSINOPHILS % (AUTO) 0.5 % (0.0-7.0); HEMATOCRIT 35.4 % (31.2-41.9); LYMPHOCYTES # (AUTO) 0.8 K/uL (20.0-40.0); LYMPHOCYTES % (AUTO) 7.4 % (20.5-51.5); MEAN CORPUSCULAR HEMOGLOBIN 30.3 uug (24.7-32.8); MEAN CORPUSCULAR HGB CONC 34 g/dL (32.3-35.6); MEAN CORPUSCULAR VOLUME 89.2 fL (75.5-95.3); MONOCYTES # (AUTO) 0.8 K/uL (2.0-10.0); MONOCYTES % (AUTO) 6.8 % (0.0-11.0); NEUTROPHILS # (AUTO) 9.7 K/uL (1.8-8.9); NEUTROPHILS % (AUTO) 85.1 % (38.5-71.5); PLATELET COUNT (AUTO) 351 K/uL (179-408); RED BLOOD CELL COUNT(AUTO) 3.97 MIL/uL (3.63-4.92); WHITE BLOOD COUNT (AUTO) 11.4 K/uL (3.8-11.8)
--- NOTE | 2019-12-27 14:30 | NUR ---
PATIENT'S HEART RATE 154 AND BLOOD PRESSURE 135/91, NOTIFIED DR. ERAZO, AND NOTIFIED THAT LASIX AND CARDIZEM WAS GIVEN AT 1230. RESPOND WITH NEW ORDER OD CARDIZEM 20MG IV ONCE AND CARDIZEM 120MG PO.
--- NOTE | 2019-12-27 14:30 | NUR ---
ADDITIONAL ORDER FROM DR. ERAZO, IF HEART RATE STILL > 110 IN ONE HOUR, GIVE AMIODARONE 150 BOLUS AND START ON DRIP PER PROTOCOL.
[2019-12-27 14:44] LABS: CREATININE 0.7 mg/dL (0.6-1.3); MAGNESIUM 1.7 mg/dL (1.8-2.4); PHOSPHOROUS 2.1 mg/dL (2.5-4.9); POTASSIUM 3.6 mmol/L (3.5-5.1)
[2019-12-27] MEDS ORDERED: NEUTRA PHOS PACKET PO ONE (15:30)
--- NOTE | 2019-12-27 15:40 | NUR ---
NOTIFIED DR. ERAZO THAT PATIENT HEART RATE HAS BEEN IN THE 70S AND CONTROLLED AFIB AFTER GIVEN CARDIZEM 120 MG PO AND CARDIZEM 20MG IV. NO NEED TO GIVE TO AMIODARONE 150MG BOLUS AT THIS TIME.
[2019-12-27] MEDS: CEFTRIAXONE 1 G in IV DEXTROSE 5% 50 ML IV SCH (17:41)
--- NOTE | 2019-12-27 18:52 | NUR ---
PATIENT ALERT AND AWAKE , NO C/O PAIN AT THIS TIME, ON OXYGEN @ 2LPM AT 97%. PATIENT'S VITAL ARE BPO 118/ 61 AND HEART RATE 75 AND ON CONTROLLED AFIB. WILL CONTINUE TO MONITOR
[2019-12-27] MEDS ORDERED: DOXYCYCLINE HYCLATE 100 MG INJ IV ONE (21:56)
[2019-12-28 00:30] VITALS: BP 119/52
[2019-12-28 04:21] VITALS: BP 116/69
[2019-12-28 04:44] VITALS: BP 116/69
--- NOTE | 2019-12-28 05:26 | NUR ---
patient slept 6 hours today.
[2019-12-28 07:35] LABS: BASOPHILS % (AUTO) 0.4 % (0.0-2.0); EOSINOPHILS % (AUTO) 0.3 % (0.0-7.0); HEMATOCRIT 33.4 % (31.2-41.9); HEMOGLOBIN 11.4 g/dL (10.9-14.3); LYMPHOCYTES # (AUTO) 0.9 K/uL (20.0-40.0); LYMPHOCYTES % (AUTO) 8.3 % (20.5-51.5); MEAN CORPUSCULAR HEMOGLOBIN 30.9 uug (24.7-32.8); MEAN CORPUSCULAR HGB CONC 34 g/dL (32.3-35.6); MEAN CORPUSCULAR VOLUME 90.7 fL (75.5-95.3); MONOCYTES % (AUTO) 8.8 % (0.0-11.0); NEUTROPHILS # (AUTO) 9.1 K/uL (1.8-8.9); NEUTROPHILS % (AUTO) 82.2 % (38.5-71.5); PLATELET COUNT (AUTO) 384 K/uL (179-408); RED BLOOD CELL COUNT(AUTO) 3.68 MIL/uL (3.63-4.92); WHITE BLOOD COUNT (AUTO) 11.1 K/uL (3.8-11.8)
[2019-12-28 07:46] LABS: BILIRUBIN,TOTAL 0.8 mg/dL (0.2-1.0); CREATININE 0.7 mg/dL (0.6-1.3); MAGNESIUM 1.8 mg/dL (1.8-2.4); PHOSPHOROUS 2.6 mg/dL (2.5-4.9); POTASSIUM 3.7 mmol/L (3.5-5.1); TOTAL PROTEIN, SERUM 6.7 g/dL (6.4-8.2)
[2019-12-28] MEDS: ENSURE ENLIVE (VAN) 240 ML LIQUID PO SCH ×3 (08:00→18:12)
[2019-12-28] MEDS ORDERED: POTASSIUM CHLORIDE 50 ML IV SCH (08:15)
[2019-12-28] MEDS ORDERED: FUROSEMIDE 40 MG TABLET PO SCH (09:00)
[2019-12-28] MEDS ORDERED: POTASSIUM CHLORIDE 20 MEQ POWDER PACKET PO ONE (09:30)
[2019-12-28] MEDS: DOXYCYCLINE HYCLATE IV 100 MG in IV DEXTROSE 5% 100 ML IV SCH (09:47)
[2019-12-28] MEDS: CHOLECALCIFEROL 1,000 UNIT TABLET PO SCH (09:47)
[2019-12-28] MEDS: AMIODARONE HCL 200 MG TABLET PO SCH (09:49)
[2019-12-28] MEDS: CLOPIDOGREL 75 MG TABLET PO SCH (09:49)
[2019-12-28] MEDS: DILTIAZEM HCL CD 120 MG CAP.SR.24H PO SCH (09:49)
[2019-12-28] MEDS: OXYBUTYNIN CHLORIDE 5 MG TABLET PO SCH ×2 (09:50→18:12)
[2019-12-28] MEDS: MEMANTINE HCL 5 MG TABLET PO SCH ×2 (09:50→18:12)
[2019-12-28 11:34] VITALS: BP 123/61
[2019-12-28] MEDS: MAGNESIUM SULFATE/D5W 100 ML IV SCH ×2 (11:43→13:00)
--- NOTE | 2019-12-28 13:45 | NUR ---
PHARMACY CLINICAL NOTES ( VANCOMYCIN DOSING) S: To continue vanco dosing on this 89 YO female for likely left lower lung aspiration PNA (spiked a fever on 12/25 while on Rocephin & zithromax) O: BUN/SCR 19/0.7 , WBC 11.1, TEMP 98.3, wt 36 KG ht 157 cm A/P: Will continue dose of Vancomycin to 500 mg IVPB q37h, estimated trough of 16 mcg/ml. 3rd dose today at 2300. Plan to order trough prior to 4th dose (not ordered). Will continue monitoring renal fxn and levels and adjust the dose if it is necessary.
[2019-12-28 15:44] VITALS: BP 144/66
[2019-12-28] MEDS: CEFTRIAXONE 1 G in IV DEXTROSE 5% 50 ML IV SCH (17:00)
--- NOTE | 2019-12-28 20:08 | NUR ---
Patient discharged to [facility] in stable condition with no signs of distress; Report given to Mirta Calloway ; iv started on left hand for patient for continuation of iv antibiotics. Patient with stable vital signs and pictures taken of patients wounds. patient left via ambulance.
== END 2019-12-28 20:42 | DRG 871 ==
LOC: ER 17:22 → MEDSURG3 18:52 → TELE3 12-25 05:56 → CCU 12-25 07:51 → TELE3 12-27 11:35
PROVIDERS: ADMIT Nurse Practitioner Acute Care; ATTEND Internal Medicine
DX: A41.9 Sepsis, unspecified organism (principal); J69.0 Pneumonitis due to inhalation of food and vomit; E43 Unspecified severe protein-calorie malnutrition; I50.33 Acute on chronic diastolic (congestive) heart failure; G92 Toxic encephalopathy; N39.0 Urinary tract infection, site not specified; D68.59 Other primary thrombophilia; F03.90 Unspecified dementia, unspecified severity, without behavioral disturbance, psychotic disturbance, mood disturbance, and anxiety; I44.7 Left bundle-branch block, unspecified; Z85.43 Personal history of malignant neoplasm of ovary; Z95.2 Presence of prosthetic heart valve; I05.0 Rheumatic mitral stenosis; I48.0 Paroxysmal atrial fibrillation; I11.0 Hypertensive heart disease with heart failure; R62.7 Adult failure to thrive; E87.6 Hypokalemia; E83.52 Hypercalcemia; M80.88XD Other osteoporosis with current pathological fracture, vertebra(e), subsequent encounter for fracture with routine healing; N32.81 Overactive bladder; M41.9 Scoliosis, unspecified; I70.0 Atherosclerosis of aorta; I25.10 Atherosclerotic heart disease of native coronary artery without angina pectoris; Z95.5 Presence of coronary angioplasty implant and graft; Z92.3 Personal history of irradiation; Z79.899 Other long term (current) drug therapy; Z79.02 Long term (current) use of antithrombotics/antiplatelets; M19.90 Unspecified osteoarthritis, unspecified site; R29.6 Repeated falls; D64.9 Anemia, unspecified; Z74.09 Other reduced mobility; E78.5 Hyperlipidemia, unspecified; J44.9 Chronic obstructive pulmonary disease, unspecified
CPT/HCPCS: 36415; 70030-TC; 71045; 83605; 83735; 84100; 85025; 85610; 87040; 87070; 87086; 87400; 93005; 93307; A4663; C1758; G0378; J0282; J0360; J0456; J0696; J1940; J2370; J3370; J3475; J3480; J3490; J7030; J7040; J7060